=== PATIENT | female | born 1945 | race Caucasian/White ===

== ENCOUNTER 2016-12-20 13:47 | Inpatient (IN) | payer MEDICARE, OTHER ==
[~2016-12-20] VITALS: Ht 162.6 cm; Wt 94.8 kg
[2016-12-20] MEDS ORDERED: LEVOTHYROXINE125 MCG PO (14:14)
[2016-12-20] MEDS ORDERED: HYDROCODONE-APA1 TAB PO (14:15)
[2016-12-20] MEDS ORDERED: OMEPRAZOLE DR 20 MG (14:15)
[2016-12-20] MEDS ORDERED: LEXAPRO20 MG PO (14:16)
[2016-12-20] MEDS ORDERED: OMEPRAZOLE20 M1 (14:17)
[2016-12-20] MEDS ORDERED: XOPENEX 1.1.25 MG/3 UPD (14:18)
[2016-12-20 15:17] LABS: BASOPHILS 0.1 % (0.0-2.0); EOSINOPHILS 0.2 % (0-7); HEMATOCRIT 28.3 % (36.0-48.0); HEMOGLOBIN 9.2 g/dL (12-16); IMMATURE GRANULOCYTES 0.2 % (0-5); LYMPHOCYTES 21.9 % (15-50); MCH 40.4 pg (26.0-34.0); MCHC 32.5 g/dL (31.0-37.0); MCV 124.1 fL (80.0-100.0); MEAN PLATELET VOLUME 10.7 fL (7.4-10.4); MONOCYTES 3.8 % (2-11); NEUTROPHILS 73.8 % (40-80); PLATELET COUNT 231 10x3/uL (130-400); RBC 2.28 10x6/uL (4.00-5.40); RDW 15.6 % (11.5-14.5); WBC 8.4 10x3/uL (4.8-10.8)
[2016-12-20 15:31] LABS: ALBUMIN 3.9 g/dL (3.4-5.0); ANION GAP 13.2 mmol/L (8-16); BILIRUBIN - TOTAL 1.81 mg/dL (0.2-1.3); CALCIUM 8.5 mg/dL (8.5-10.1); CREATININE - SERUM 1.3 mg/dL (0.6-1.3); POTASSIUM - SERUM 4.2 mmol/L (3.5-5.1); PROTEIN - SERUM 5.9 g/dL (6.4-8.2)
[2016-12-20 16:00] VITALS: BP 98/32
[2016-12-20 17:22] LABS: APPEARANCE CLOUDY (CLEAR); BILIRUBIN NEGATIVE (NEGATIVE); COLOR DK YELLOW (YELLOW); GLUCOSE 50 mg/dL (NEGATIVE); KETONE NEGATIVE (NEGATIVE); LEUKOCYTE ESTERASE 1+ (NEGATIVE); NITRITE NEGATIVE (NEGATIVE); PROTEIN 2+ mg/dL (NEGATIVE); SPECIFIC GRAVITY 1.025 (1.005-1.020); UROBILINOGEN NORMAL (NORMAL)
[2016-12-20 17:23] LABS: BACTERIA MANY /hpf (NONE SEEN); EPITHELIAL CELLS 0-5 /hpf (0-5); HYALINE CAST 0-5 /lpf (NONE SEEN); MUCUS <1+ /lpf (NONE SEEN); RED CELLS - URINE 0-5 /hpf (0-5); WHITE CELLS - URINE 0-5 /hpf (0-5)
[2016-12-20 17:24] LABS: CALCIUM OXALATE CRYSTALS 0-5 /hpf (NONE SEEN)
[2016-12-20 18:08] VITALS: BP 98/32; BMI 35.9
[2016-12-20 19:00] VITALS: BP 139/51
[2016-12-21] VITALS (16 sets, daily range): BP systolic 98–140; BP diastolic 39–69; Ht 162.6 cm; Wt 94.8 kg
[2016-12-21 05:25] LABS: BASOPHILS 0 % (0.0-2.0); EOSINOPHILS 0 % (0-7); HEMATOCRIT 23.9 % (36.0-48.0); HEMOGLOBIN 8.2 g/dL (12-16); LYMPHOCYTES 6.4 % (15-50); MCH 41.2 pg (26.0-34.0); MCHC 34.3 g/dL (31.0-37.0); MEAN PLATELET VOLUME 11.3 fL (7.4-10.4); MONOCYTES 0.7 % (2-11); NEUTROPHILS 92.9 % (40-80); PLATELET COUNT 240 10x3/uL (130-400); RDW 15.2 % (11.5-14.5); WBC 4.2 10x3/uL (4.8-10.8)
[2016-12-21 05:26] LABS: MCV 120.1 fL (80.0-100.0)
[2016-12-21 05:30] LABS: RBC 1.99 10x6/uL (4.00-5.40)
[2016-12-21 05:54] LABS: ALBUMIN 3.3 g/dL (3.4-5.0); ANION GAP 12.2 mmol/L (8-16); BILIRUBIN - TOTAL 1.11 mg/dL (0.2-1.3); CALCIUM 8.2 mg/dL (8.5-10.1); CARBON DIOXIDE 26.1 mmol/L (21.0-32.0); CREATININE - SERUM 1.2 mg/dL (0.6-1.3); POTASSIUM - SERUM 4.3 mmol/L (3.5-5.1); PRE-ALBUMIN 16.8 mg/dL (18.0-35.7); PROTEIN - SERUM 5.7 g/dL (6.4-8.2)
[2016-12-21 07:26] LABS: FOLATE (FOLIC ACID) - SERUM 2.9 ng/mL (>3.0)
--- NOTE | 2016-12-21 07:45 | NUR ---
ALERT THIS MORNING, HAS SOME COMPLAINTS ABOUT BEING RESTLESS FROM STEROIDS AND BREATHING TREATMENTS, HOPING A SHOWER LATER WILL HELP CALM HER, BED LOWEST POSITION, CALL LIGHT IN REACH, WILL CONTINUE TO MONITOR
--- NOTE | 2016-12-21 11:25 | NUR ---
Patient Name: BRYSON NOONAN Admission Status: Elective Accout number: [id number] Admission Date: 12-20-2016 : 1945 Admission Diagnosis:NAUSEA WITH VOMITING, UNSPECIFIED Attending: FABIAN Current LOS: 1 Anticipated DC Date: 12-25-2016 Planned Disposition: Home Primary Insurance: MEDICARE A & B Discharge Planning Comments: CM MET WITH PATIENT AND DAUGHTER IN LAW (RUTH ANN) REGARDING D/C NEEDS AND PLANS. PATIENT STATED SHE LIVES WITH HER SPOUSE (ROXANA). PATIENTS DAUGHTER IN LAW WILL DRIVE HER HOME AT DISCHARGE. PATIENT IS INDEPENDENT WITH HER CARE AND HAS A WALKER, CANE, BS COMMODE, SHOWER CHAIR, AND GLUCOMETER (CKS 1X EVERY 3 DAYS) IF NEEDED. PATIENT USES THE CANE MORE THAN THE WALKER PER DAUGHTER IN LAW. PATIENTS PCP IS DR. LUTZ AND PHARMACY IS [facility]. PATIENT STATED SHE HELPED START [facility] AND SHE WILL GET IN TOUCH WITH THEM HERSELF IF SERVICES ARE NEEDED. CM WILL CONTINUE TO FOLLOW PATIENT WITH D/C NEEDS AND PLANS. PCP [facility]- [phone] ROXANA (SPOUSE) [phone] RUTH ANN (DAUGHTER IN LAW) [phone] Regulatory Specialist: Nae Farris Is the patient Alert and Oriented? Yes 0 * How many steps to enter\exit or inside your home? 5 W/O RAIL 0 * PCP DR. LUTZ 0 * Pharmacy [facility] 0 * Preadmission Environment Home with Family 0 * ADLs Independent 0 * Equipment Bedside Commode Cane Glucometer Shower Chair Walker 0 * List name and contact numbers for known caregivers / representatives who currently or will assist patient after discharge: ROXANA (SPOUSE) [phone] RUTH ANN (DAUGHTER IN LAW) [phone] 0 * Community resources currently utilized None 0 * Additional services required to return to the preadmission environment? Yes 0 * Can the patient safely return to the preadmission environment? Yes 0 * Has this patient been hospitalized within the prior 30 days at any hospital? No 0 Grand Total: 0
--- NOTE | 2016-12-21 14:35 | NUR ---
RESTING QUIETLY IN BED. DENIES NEEDS. NO C/O NAUSEA AT THIS TIME.
[2016-12-21 17:19] LABS: % SATURATION 54 % (15-55); IRON 99 ug/dl (35-150); TOTAL IRON BIND CAPACITY 183 ug/dl (260-445); UNSAT IRON BIND CAPACITY 84 ug/dl (150-375)
--- NOTE | 2016-12-21 18:26 | NUR ---
BALLOON DILATION TO 54 FRISIAN 1X 1 MINUTE.
--- NOTE | 2016-12-21 19:40 | NUR ---
PT SITTING UP IN BED TALKING WITH FAMILY, ASSESSMENT COMPLETED, NO ACUTE DISTRESS NOTED, DENIES PAIN, NAUSEA OR NEEDS AT THIS TIME, FALL PRECATIONS IN PLACE, CL IN REACH, WILL MONITOR
--- NOTE | 2016-12-21 21:14 | NUR ---
MEDS GIVEN PER MAR, ADRIANNE WELL, DENIES OTHER NEEDS AT THIS TIME, CL IN REACH
[2016-12-22] VITALS: BP 153/47
--- NOTE | 2016-12-22 01:11 | NUR ---
RESTING WITH EYES CLOSED, RESP WITH EASE, NO DISTRESS NOTED, CL IN REACH
--- NOTE | 2016-12-22 03:21 | NUR ---
RESTING WITH EYES CLOSED, RESP WITH EASE, NO DISTRESS NOTED, SR'S UP, CL IN REACH
[2016-12-22 04:00] VITALS: BP 129/49
[2016-12-22 06:16] LABS: BASOPHILS 0 % (0.0-2.0); EOSINOPHILS 0 % (0-7); HEMATOCRIT 25.3 % (36.0-48.0); HEMOGLOBIN 8.3 g/dL (12-16); IMMATURE GRANULOCYTES 0.3 % (0-5); LYMPHOCYTES 4.4 % (15-50); MCH 41.1 pg (26.0-34.0); MCHC 32.8 g/dL (31.0-37.0); MEAN PLATELET VOLUME 11.2 fL (7.4-10.4); MONOCYTES 1.2 % (2-11); NEUTROPHILS 94.1 % (40-80); PLATELET COUNT 271 10x3/uL (130-400); RBC 2.02 10x6/uL (4.00-5.40); RDW 16.2 % (11.5-14.5)
[2016-12-22 06:23] LABS: MCV 125.2 fL (80.0-100.0)
[2016-12-22 06:38] LABS: ALBUMIN 3.6 g/dL (3.4-5.0); ANION GAP 13.4 mmol/L (8-16); BILIRUBIN - TOTAL 1.61 mg/dL (0.2-1.3); CALCIUM 8.8 mg/dL (8.5-10.1); CARBON DIOXIDE 26.3 mmol/L (21.0-32.0); CREATININE - SERUM 1.4 mg/dL (0.6-1.3); POTASSIUM - SERUM 4.7 mmol/L (3.5-5.1)
[2016-12-22 12:32] VITALS: BP 140/87
[2016-12-22 17:31] VITALS: BP 150/58
[2016-12-22 19:01] VITALS: BP 135/54
--- NOTE | 2016-12-22 19:30 | NUR ---
REC'D PATIENT SITTING ON THE SIDE OF THE BED. ALERT AND ORIENTED X4. NO DISTRESS NOTED. DENIES PAIN AT THIS TIME. DENIED FURTHER NEEDS AT THIS TIME. INTRUCTED TO CALL IF NEEDED ANYTHING. VERBALIZED UNDERSTANDING. BED LOW, LOCKED, CALL LIGHT IN REACH.
--- NOTE | 2016-12-22 21:15 | NUR ---
ADMINISTERED MEDS PRESCRIBED. STATED PAIN WAS 8/10 IN HER BACK. DOES NOT HAVE ANYTHING ON HER MAR BUT TYLENOL WITH ADMINISTER THAT PER HER REQUEST. ALSO INTRUCTED PATIENT NOT TO STRETCH HER IV TUBING OUT SO THAT HER IV DOES NOT COME OUT. VERBLAIZED UNDERSTANDING. BED LOW, LOCKED, CALL LIGHT IN REACH.
[2016-12-23] VITALS: BP 148/61
--- NOTE | 2016-12-23 00:45 | NUR ---
PATIENT IS RESTING COMFORTABLY IN BED. NO DISTRESS NOTED. DENIED PAIN AT THIS TIME. DENIED FURTHER NEEDS AT THIS TIME. INTRUCTED TO CALL IF NEEDED ANYTHING. BED LOW, LOCKED, CALL LIGHT IN REACH.
--- NOTE | 2016-12-23 01:31 | NUR ---
PATIENT RESTING WITH EYES CLOSED. NO VISIBLE SIGNS OF DISTRESS. BED IN LOWEST POSITION AND CALL LIGHT WITHIN REACH.
[2016-12-23 04:00] VITALS: BP 144/66
--- NOTE | 2016-12-23 04:06 | NUR ---
PATIENT IS HAVING BLOOD DRAWN. NO DITRESS NOTED. DENIES PAIN AT THIS TIME. DENIED NEEDS AT THIS TIME. INTRUCTED TO CALL IF NEEDED ASSISTANCE. VERBLAIZED UNDERSTANDING. BED LOW, LOCKED, CALL LIGHT IN REACH.
[2016-12-23 04:51] LABS: BASOPHILS 0 % (0.0-2.0); EOSINOPHILS 0 % (0-7); HEMATOCRIT 22.5 % (36.0-48.0); IMMATURE GRANULOCYTES 0.4 % (0-5); LYMPHOCYTES 4.8 % (15-50); MCH 41.1 pg (26.0-34.0); MCHC 32.9 g/dL (31.0-37.0); MEAN PLATELET VOLUME 11.3 fL (7.4-10.4); NEUTROPHILS 93.8 % (40-80); RDW 16.1 % (11.5-14.5)
[2016-12-23 04:53] LABS: WBC 7.7 10x3/uL (4.8-10.8)
[2016-12-23 04:54] LABS: HEMOGLOBIN 7.4 g/dL (12-16); PLATELET COUNT 205 10x3/uL (130-400)
[2016-12-23 05:10] LABS: ALBUMIN 3.4 g/dL (3.4-5.0); ANION GAP 10.9 mmol/L (8-16); BILIRUBIN - DIRECT 0.21 mg/dL (0.00-0.30); BILIRUBIN - TOTAL 1.2 mg/dL (0.2-1.3); CALCIUM 8.4 mg/dL (8.5-10.1); CARBON DIOXIDE 26.4 mmol/L (21.0-32.0); POTASSIUM - SERUM 4.3 mmol/L (3.5-5.1); PROTEIN - SERUM 5.4 g/dL (6.4-8.2)
--- NOTE | 2016-12-23 07:20 | NUR ---
PT REC'D FROM [facility]. UP AMBULATING AROUND ROOM W/O DIFFICULTY. AAOX4. NO COMPLAINTS OF PAIN CURRENTLY. BOWEL SOUNDS ACTIVE X4 QUADRANTS. NO C/O OF N/V. ZOFRAN DRIP INFUSING TO PIV TO R WRIST. NO REDDNESS OR SWELLING NOTED. BED LOW, CALL LIGHT IN REACH, DENEIS NEEDS. CPOC.
[2016-12-23 08:28] VITALS: BP 127/47
[2016-12-23 12:02] VITALS: BP 140/54
--- NOTE | 2016-12-23 14:45 | NUR ---
20 GUAGE IV SITED TO L FOREARM. X1 ATTEMPT. ABLE TO GET RETURN AND FLUSH W/O DIFFICULTY. PRE BLOOD VS OBTAINED AND STABLE AT THIS TIME. 1ST UNIT OF PRBC'S STARTED. WILL MONITOR. FOR FIRST 15 MINUTES.
--- NOTE | 2016-12-23 16:24 | NUR ---
PT AOX4 RESP EVEN AND NONLABORED PT IV IN RIGHT WRIST PATENT AND INTACT. PT DENIES NEEDS AT THIS TIME BED AT LOWEST SETTING CALL LIGHT WITH IN REACH WILL CONTINUE TO MONITOR
--- NOTE | 2016-12-23 16:30 | NUR ---
CURRENT FSBS 123. NO INSULIN ADMINSITERED PER SS.
[2016-12-23 16:36] VITALS: BP 168/67
--- NOTE | 2016-12-23 18:08 | NUR ---
HARVEY STARTED AT THIS TIME. PT WAS ABLE TO GET ONE 8OZ CUP DOWN BEFORE STARTING TO HAVE BM. BSC CLOSE AND CALL LIGHT WITHIN REACH.
--- NOTE | 2016-12-23 20:00 | NUR ---
STARTED SECOND UNIT OF BLOOD ON PATIENT. NO VISIBLE SIGNS OF DISTRESS AND VITAL SIGNS WITHIN NORMAL LIMITS. BED IN LOWEST POSITION AND CALL LIGHT WITHIN REACH. ENCOURAGED PATIENT TO CALL IF SHE HAS NEEDS.
[2016-12-24] VITALS (14 sets, daily range): BP systolic 99–191; BP diastolic 55–95
--- NOTE | 2016-12-24 03:51 | NUR ---
PATIENT HAS BEEN UP MOST OF THE NIGHT GOING TO THE BATHROOM. WAS ON A BOWEL PREP FOR A COLONOSCOPY 12/24/16. I HUNG THE LAST UNIT OF BLOOD THAT SHE WAS TO RECIEVE AT 8PM WITH NAREN WEEKS. VITALS WERE STABLE. NO DISTRESS NOTED. INSTRUCTED TO CALL IF NEEDED ANYTHING. VERBALIZED UNDERSTANDING. BED LOW, LOCKED, CALL LIGHT IN REACH.
[2016-12-24 05:30] LABS: APTT 31.9 SECONDS (22.8-39.4); INR 1.54 (0.85-1.17); PROTIME 18.4 SECONDS (11.6-15.0)
[2016-12-24 05:42] LABS: BASOPHILS 0 % (0.0-2.0); EOSINOPHILS 0 % (0-7); HEMATOCRIT 26.6 % (36.0-48.0); IMMATURE GRANULOCYTES 0.6 % (0-5); LYMPHOCYTES 5.4 % (15-50); MCH 37.3 pg (26.0-34.0); MCHC 33.8 g/dL (31.0-37.0); MCV 110.4 fL (80.0-100.0); MONOCYTES 1.3 % (2-11); NEUTROPHILS 92.7 % (40-80); PLATELET COUNT 169 10x3/uL (130-400); RBC 2.41 10x6/uL (4.00-5.40); WBC 6.7 10x3/uL (4.8-10.8)
[2016-12-24 06:05] LABS: ANION GAP 12.6 mmol/L (8-16); CALCIUM 8.4 mg/dL (8.5-10.1); CARBON DIOXIDE 25.5 mmol/L (21.0-32.0); CREATININE - SERUM 1.1 mg/dL (0.6-1.3); POTASSIUM - SERUM 4.1 mmol/L (3.5-5.1)
--- NOTE | 2016-12-24 06:30 | NUR ---
PT IS RESTING COMFORTLY IN BED. NO DISTRESS NOTED. BMS HAVE BEEN A CLEAR YELLOW. PT IS CONCERNED ABT IT. ALERT AND ORIENTED X4. DENIED PAIN AT THIS TIME. DENIED FURTHER NEEDS AT THIS TIME. BED LOW, LOCKED, CALL LIGHT IN REACH.
--- NOTE | 2016-12-24 07:33 | NUR ---
AWAKE AND ALERT. ORIENTED X3. NO C/O AT THIS TIME. LUNGS ARE CLEAR BILATERALLY, NO COUGH NOTED. SKIN IS INTACT WITHOUT REDNESS. IV TO RIGHT WRIST PATENT WITHOUT REDNESS AT INSERTION SITE. SL TO LEFT WRIST PATENT WELL. DENIES NEEDS. VISITORS AT BEDSIDE.
--- NOTE | 2016-12-24 11:30 | NUR ---
FSBS 125. NO COVERAGE.
[2016-12-24 13:13] LABS: HAPTOGLOBIN 39 mg/dL (34-200); TRANSFERRIN 182 mg/dL (200-370)
--- NOTE | 2016-12-24 15:57 | NUR ---
OFF UNIT VIA BED TO GI LAB.
--- NOTE | 2016-12-24 17:29 | NUR ---
RETURNED FROM PROCEDURE. A/O X3. NO C/O AT THIS TIME. DRY HACKY COUGH NOTED. WILL MONITOR.
[2016-12-24 18:08] LABS: SPE - A/G RATIO 1.8 (0.7-1.7); SPE - ALBUMIN 3.5 g/dL (2.9-4.4); SPE - ALPHA-1 GLOBULIN 0.2 g/dL (0.0-0.4); SPE - ALPHA-2 GLOBULIN 0.5 g/dL (0.4-1.0); SPE - BETA GLOBULIN 0.7 g/dL (0.7-1.3); SPE - GAMMA GLOBULIN 0.5 g/dL (0.4-1.8); SPE - M-SPIKE Not Observed g/dL (Not Observed); SPE - TOTAL PROTEIN 5.5 g/dL (6.0-8.5)
--- NOTE | 2016-12-24 18:46 | NUR ---
SITTING UP ON SIDE OF BED WITH VISITORS IN ROOM. NO C/O PAIN OR DISCOMFORT. NO CHANGES NOTED.
--- NOTE | 2016-12-24 20:00 | NUR ---
SITTING UP IN CHAIR VISITING WITH FAMILY, ASSESSMENT COMPLETED, NO DISTRESS NOTED, DENIES NEEDS AT THIS TIME, CL IN REACH, WILL MONITOR
[2016-12-24 20:07] LABS: IMMUNOFIXATION Note: (()); IMMUNOGLOBULIN A 66 mg/dL (64-422); IMMUNOGLOBULIN G 580 mg/dL (700-1600); IMMUNOGLOBULIN M 93 mg/dL (26-217)
--- NOTE | 2016-12-24 20:50 | NUR ---
MEDS GIVEN PER MAR, ADRIANNE WELL, INSULIN HELD PER SLIDING SCALE FOR BS OF 95, WILL ADMINISTER B12 INJECTION WHEN AVAILABLE FROM PHARMACY, FAMILY IN ROOM, DENIES NEEDS AT THIS TIME, CL IN REACH
--- NOTE | 2016-12-24 22:01 | NUR ---
B12 AVAILABLE AT THIS TIME, ADMINISTERED IN L DELTOID ALONG WITH PRN NORCO FOR C/O PAIN 04/25, ADRIANNE WELL, CL IN REACH
--- NOTE | 2016-12-24 23:20 | NUR ---
RESTING WITH EYES CLOSED, RESP WITH EASE, NO DISTRESS NOTED, FALL PRECAUTIONS IN PLACE, CL IN REACH, WILL CONTINUE TO MONITOR
--- NOTE | 2016-12-25 01:17 | NUR ---
CONTINUES TO REST WITH EYES CLOSED, IV INFUSING WITH EASE, SR'S UP, CL IN REACH
--- NOTE | 2016-12-25 03:52 | NUR ---
RESP EVEN AND UNLABORED, NO DISTRESS NOTED, CL IN REACH
[2016-12-25 04:00] VITALS: BP 127/58
[2016-12-25 05:43] LABS: BASOPHILS 0 % (0.0-2.0); EOSINOPHILS 0 % (0-7); HEMATOCRIT 26.4 % (36.0-48.0); HEMOGLOBIN 8.5 g/dL (12-16); IMMATURE GRANULOCYTES 0.2 % (0-5); LYMPHOCYTES 5.4 % (15-50); MCH 35.6 pg (26.0-34.0); MCHC 32.2 g/dL (31.0-37.0); MCV 110.5 fL (80.0-100.0); MEAN PLATELET VOLUME 11.7 fL (7.4-10.4); NEUTROPHILS 93.4 % (40-80); PLATELET COUNT 158 10x3/uL (130-400); RBC 2.39 10x6/uL (4.00-5.40); WBC 8.3 10x3/uL (4.8-10.8)
--- NOTE | 2016-12-25 07:30 | NUR ---
AWAKE AND ALERT. ORIENTED X3. C/O BACK PAIN LEVEL 7 THIS AM. GIVEN ONE HYDROCODONE PO FOR SAME. WILL MONITOR. LUNGS HAVE FAINT CRACKLES THROUGHOUT, DRY COUGH NOTED. SKIN IS INTACT WITHOUT REDNESS. IV TO LEFT WRIST PATENT WITHOUT REDNESS AT INSERTION SITE. SL TO RIGHT WRIST PATENT. DENIES NEEDS.
[2016-12-25 08:10] VITALS: BP 150/81
[2016-12-25 11:41] VITALS: BP 151/49
[2016-12-25] MEDS ORDERED: VITAMIN B-1000 MCG/M IM (12:29)
--- NOTE | 2016-12-25 13:01 | NUR ---
CM REASSESSMENT NOTE : PATIENT IS DISCHARGING HOME TODAY-DAUGHTER IN LAW DRIVING HER. PATIENT REF HH OR ANY OTHER NEEDS FOR DISCHARGE. PATIENT STATED SHE BUILT [facility] AND WOULD CALL THEM IF NEEDED.
--- NOTE | 2016-12-25 14:55 | NUR ---
IV TO LEFT WRIST D/C WITH CATHETER INTACT. SL TO RIGHT WRIST D/C WITH CATHETER INTACT.
--- NOTE | 2016-12-25 15:37 | NUR ---
DISCHARGED TO HOME AMBULATORY WITH FAMILY. DISCHARGE INSTRUCTIONS GIVEN BOTH VERBALLY AND WRITTEN. ALL QUESSTIONS ANSWERED. PATIENT AND FAMILY VERBALIZED UNDERSTANDING OF SAME. NEEDED PRESCRIPTIONS EFAXED TO PHARMACY OF CHOICE.
== END 2016-12-25 15:39 | disposition home or self-care (01) | DRG 392 ==
LOC: D.MS 13:47
PROVIDERS: Internal Medicine Gastroenterology; Legal Medicine; ADMIT Family Medicine
PROC: 0D758ZZ Dilation of Esophagus, Via Natural or Artificial Opening Endoscopic (ICD-10-PCS; 2016-12-21)
PROC: 0DB58ZX Excision of Esophagus, Via Natural or Artificial Opening Endoscopic, Diagnostic (ICD-10-PCS; principal; 2016-12-21 17:00)
PROC: 0DJD8ZZ Inspection of Lower Intestinal Tract, Via Natural or Artificial Opening Endoscopic (ICD-10-PCS; 2016-12-24)
DX: K22.2 Esophageal obstruction (principal); C90.00 Multiple myeloma not having achieved remission; E44.0 Moderate protein-calorie malnutrition; K22.4 Dyskinesia of esophagus; D51.1 Vitamin B12 deficiency anemia due to selective vitamin B12 malabsorption with proteinuria; D53.1 Other megaloblastic anemias, not elsewhere classified; E86.0 Dehydration; R63.4 Abnormal weight loss; R19.7 Diarrhea, unspecified; R68.81 Early satiety; J45.909 Unspecified asthma, uncomplicated; J44.9 Chronic obstructive pulmonary disease, unspecified; E11.9 Type 2 diabetes mellitus without complications; I50.9 Heart failure, unspecified; Z68.35 Body mass index [BMI] 35.0-35.9, adult; D17.79 Benign lipomatous neoplasm of other sites; K64.4 Residual hemorrhoidal skin tags; K64.8 Other hemorrhoids

== ENCOUNTER 2017-07-10 11:40 | Day surgery (SDC) | payer MEDICARE, OTHER ==
[~2017-07-10 11:40] MED LIST: HYDROCODONE-APA1 TAB PO; LEVOTHYROXINE125 MCG PO; LEXAPRO20 MG PO; OMEPRAZOLE DR 20 MG; OMEPRAZOLE20 M1; VITAMIN B-1000 MCG/M IM; XOPENEX 1.1.25 MG/3 UPD
[2017-07-10 12:26] LABS: BASOPHILS 0.4 % (0-2); HEMOGLOBIN 13.7 g/dL (12-16); IMMATURE GRANULOCYTES 0.2 % (0-5); LYMPHOCYTES 26.7 % (15-50); MCH 29.4 pg (26.0-34.0); MCHC 31.9 g/dL (31.0-37.0); MCV 92.3 fL (80.0-100.0); MEAN PLATELET VOLUME 11.3 fL (7.4-10.4); MONOCYTES 6.6 % (2-11); NEUTROPHILS 64.1 % (40-80); RBC 4.66 10x6/uL (4.00-5.40); RDW 14.8 % (11.5-14.5); WBC 8.4 10x3/uL (4.8-10.8)
[2017-07-10 12:27] LABS: PLATELET COUNT 248 10x3/uL (130-400)
[2017-07-10 12:35] VITALS: BMI 36.1
[2017-07-10 12:51] LABS: ANION GAP 11.7 mmol/L (8-16); CALCIUM 9.5 mg/dL (8.5-10.1); CARBON DIOXIDE 31.7 mmol/L (21.0-32.0); CREATININE - SERUM 0.9 mg/dL (0.6-1.3); POTASSIUM - SERUM 4.4 mmol/L (3.5-5.1)
--- NOTE | 2017-07-14 12:24 | OP ---
PATIENT NAME: BRYSON NOONAN MEDICAL RECORD: [id number] :45 LOCATION:GOOD ADMISSION DATE: SURGEON: ROSIE CHAVEZ DO DATE OF OPERATION: 07/10/2017 PROCEDURE: EGD with balloon dilation. INDICATIONS FOR PROCEDURE: Dysphagia as well as epigastric abdominal pain and heartburn. SCOPE: Kinopto video gastroscope. MEDICATIONS: Propofol 150 mg IV per anesthesia. ESTIMATED BLOOD LOSS: Minimal to none. COMPLICATIONS: None. FINDINGS: Informed consent was given. The patient was made comfortable with the above medication. After reaching an adequate level of sedation by slow IV push, the patient was placed on her left side. The endoscope was then advanced under direct visualization through the mouth into the efferent limb of the jejunum down to approximately 40 plus or minus cm. The upper, middle, and lower thirds of the esophagus appeared normal. At the GE junction, there was some mild LA class A reflux-induced esophagitis. There was some slight stenosis of the GE junction without any specific stricturing. The scope easily traversed the site prior to dilation. The gastric pouch appeared normal without erosions or ulcerations or the appearance of inflammation. The blind pouch was inspected and appeared normal. The efferent limb of the jejunum was traversed approximately 40 cm and all of the mucosa that was visualized appeared normal. The endoscope was then brought back up to the gastric pouch and through the scope balloon was placed through the working channel and at the side of the esophageal stenosis. The balloon was used to dilate the GE junction up to 20 mm maximum diameter. The balloon was then let down and the site was inspected. The dilation was successful. The endoscope was then withdrawn from the patient. The patient tolerated the procedure well and there were no complications. IMPRESSION: 1. LA class A reflux-induced esophagitis. 2. 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 3. History of Jackeline-en-Y gastric bypass with a normal efferent limb to approximately 40 cm. PLAN AND RECOMMENDATIONS: 1. Discharge home when recovery parameters are met. 2. Continue GERD diet and reflux precautions. 3. Continue current medications. 4. Notify the GI clinic if symptoms worsen or failed to improve, status post dilation. 5. If symptoms failed to improve, consider an upper GI with small bowel follow through and/or an esophageal manometry study. TRANSINT:[id number] Voice Confirmation ID: [id number] DOCUMENT ID: [id number] OPERATIVE REPORT [id number] BRYSON NOONAN NATHAN A DO at 1224 CC: [id number] DICTATION DATE: 07/10/17 1336 TYPE SOLDERING MACHINE TENDER: 07/10/17 1446 [facility] 07/10/17 [place] [id number] [place] [id number]
== END 2017-07-10 15:15 | disposition home or self-care (01) ==
LOC: D.OPS 11:40
PROVIDERS: Anesthesiology
DX: K21.0 Gastro-esophageal reflux disease with esophagitis (principal); K22.2 Esophageal obstruction; Z98.84 Bariatric surgery status; Z01.812 Encounter for preprocedural laboratory examination

== ENCOUNTER 2017-08-16 09:00 | Outpatient (CLI) | payer MEDICARE, OTHER | END 2017-08-16 23:59 | disposition home or self-care (01) | LOC: D.MAMMO 09:00 | DX: Z12.31 Encounter for screening mammogram for malignant neoplasm of breast (principal) ==

== ENCOUNTER 2017-09-04 08:31 | Day surgery (SDC) | payer MEDICARE, OTHER ==
[~2017-09-04] VITALS: Ht 160 cm; Wt 92.7 kg
[2017-09-04 09:53] LABS: BASOPHILS 0.3 % (0-2); EOSINOPHILS 1.9 % (0-7); HEMATOCRIT 44.6 % (36.0-48.0); HEMOGLOBIN 14.4 g/dL (12-16); IMMATURE GRANULOCYTES 0.3 % (0-5); LYMPHOCYTES 28.3 % (15-50); MCH 29.4 pg (26.0-34.0); MCHC 32.3 g/dL (31.0-37.0); MEAN PLATELET VOLUME 11.4 fL (7.4-10.4); MONOCYTES 6.7 % (2-11); NEUTROPHILS 62.5 % (40-80); PLATELET COUNT 279 10x3/uL (130-400); RDW 13.3 % (11.5-14.5); WBC 7.8 10x3/uL (4.8-10.8)
[2017-09-04 10:11] LABS: ANION GAP 10.3 mmol/L (8-16); CALCIUM 9.6 mg/dL (8.5-10.1); CARBON DIOXIDE 31.3 mmol/L (21.0-32.0); POTASSIUM - SERUM 4.6 mmol/L (3.5-5.1)
[2017-09-04 11:59] VITALS: Ht 160 cm; Wt 92.7 kg
--- NOTE | 2017-09-04 17:53 | NUR ---
1445--IV DC'D. DILCIA SNEED 1500--DISCHARGE INSTRUCTIONS GIVEN, PT VERBALIZES UNDERSTANDING. PT OFF UNIT VIA WC. DILCIA SNEED
--- NOTE | 2017-09-12 10:48 | OP ---
PATIENT NAME: BRYSON NOONAN MEDICAL RECORD: [id number] :45 LOCATION:D.OPS ADMISSION DATE: SURGEON: ROSIE CHAVEZ DO DATE OF OPERATION: 09/04/2017 PROCEDURE: Colonoscopy with polypectomy. INDICATION FOR PROCEDURE: History of colon polyps. SCOPE: Olympus video pediatric colonoscope. MEDICATIONS: Propofol 300 mg IV per anesthesia. WITHDRAWAL TIME: 13 minutes. ESTIMATED BLOOD LOSS: Minimal. COMPLICATIONS: None. FINDINGS: Informed consent was given. The patient was made comfortable with the above medication. After reaching an adequate level of sedation by slow IV push, the patient was placed on her left side. A digital rectal examination was performed and was normal. The endoscope was then advanced under direct visualization through the rectum to the cecum with visualization of the appendiceal orifice and ileocecal valve. The endoscope was slowly withdrawn and the mucosa was carefully examined. The prep quality was good. There was evidence of mild diverticulosis of the sigmoid colon without evidence of diverticulitis. In the ascending colon, there was a single benign appearing sessile polyp which measured approximately 4-5 mm in diameter. It was removed using a hot snare in 1 piece and completely retrieved. Retroflexion was performed in the rectum with visualization of grade II to grade III nonbleeding hemorrhoids. These hemorrhoids were visualized on the digital rectal examination as well. The endoscope was withdrawn from the patient completely. The patient tolerated the procedure well and there were no complications. IMPRESSION: 1. Internal and external hemorrhoids, which were not bleeding. 2. Mild diverticulosis of the sigmoid colon. 3. Polyp located in the ascending colon, removed with a hot snare. PLAN AND RECOMMENDATIONS: 1. Discharge home when recovery parameters are met. 2. Follow up biopsy specimen results. 3. High fiber diet. 4. Continue current medications. 5. Recall colonoscopy in 5 years. 6. Follow up in GI clinic as needed. TRANSINT:[id number] Voice Confirmation ID: [id number] DOCUMENT ID: [id number] OPERATIVE REPORT [id number] BRYSON NOONAN ROSIE CHAVEZ DO at 1048 CC: [id number] DICTATION DATE: 09/04/17 1328 TAB CARD PRESS OPERATOR: 09/04/17 1413 [facility] 09/04/17 [place] [id number] [place] [address]
== END 2017-09-04 15:00 | disposition home or self-care (01) ==
LOC: D.OPS 08:31
PROVIDERS: Anesthesiology
DX: D12.2 Benign neoplasm of ascending colon (principal); J45.909 Unspecified asthma, uncomplicated; J44.9 Chronic obstructive pulmonary disease, unspecified; R10.13 Epigastric pain; R11.0 Nausea

== ENCOUNTER 2017-12-30 10:13 | Day surgery (SDC) | payer MEDICARE, OTHER ==
[~2017-12-30] VITALS: Ht 160 cm; Wt 99.1 kg
--- NOTE | ~2017-12-30 | OP ---
PATIENT NAME: BRYSON NOONAN MEDICAL RECORD: [id number] :45 LOCATION:GOOD ADMISSION DATE: SURGEON: ROSIE CHAVEZ DO DATE OF OPERATION: 12/30/2017 PROCEDURE: EGD. INDICATIONS FOR PROCEDURE: Dysphagia and epigastric and right upper quadrant pain. SCOPE: Olympus video gastroscope. MEDICATIONS: Propofol 100 mg IV per anesthesia. ESTIMATED BLOOD LOSS: None. COMPLICATIONS: None. FINDINGS: Informed consent was given. The patient was made comfortable with the above medication. After reaching an adequate level of sedation by slow IV push, the patient was placed on her left side. The endoscope was then advanced under direct visualization through the mouth to the Jackeline limb of the jejunum to approximately 60 cm from the mouth. The upper, middle, and lower thirds of the esophagus appeared normal. At the GE junction, there was mild evidence of LA class A reflux-induced esophagitis. There was no stenosis, rings, webs, or strictures within the esophagus or GE junction. The endoscope was advanced beyond the GE junction into the gastric pouch, which appeared normal in size. There were no erosions or ulcers present within the pouch or the anastomotic sites. The endoscope was advanced beyond the anastomosis to the point where a blind limb was present. There was also an exit to the Jackeline limb. The blind pouch appeared normal. There were no ulcers or erosions, or other abnormalities in this site. The endoscope was advanced down the Jackeline limb to approximately 60 cm from the incisors. There were no abnormalities visualized within this area of small bowel. The endoscope was then withdrawn from the patient. The patient tolerated the procedure well and there were no complications. IMPRESSION: 1. LA class A reflux-induced esophagitis. 2. Prior Jackeline-en-Y gastric bypass surgery. The anastomotic site appears normal and healthy. 3. Dysphagia and pain after eating may be related to distention of the gastric pouch and/or the blind limb. PLAN AND RECOMMENDATIONS: 1. Discharge home when recovery parameters are met. 2. Continue GERD diet and reflux precautions. 3. Recommend smaller more frequent meals. 4. We will obtain an upper GI with small bowel follow through to look for other causes of symptoms. 5. Consider esophageal manometry study if dysphagia persists. TRANSINT:[id number] Voice Confirmation ID: [id number] DOCUMENT ID: [id number] OPERATIVE REPORT [id number] SHAISTABRYSON CHAMORRO NATHAN A DO at 1524 CC: [id number] DICTATION DATE: 12/30/17 1217 CORN HUSK BALER: 12/30/17 1246 [facility] 12/30/17 [place] [id number] [place] [address]
[2017-12-30] MEDS ORDERED: NEURONTIN 300300 MG PO (11:04)
[2017-12-30 11:11] VITALS: BP 157/113; Ht 160 cm; Wt 99.1 kg
[2017-12-30 12:04] LABS: BASOPHILS 0.3 % (0-2); EOSINOPHILS 2.9 % (0-7); HEMATOCRIT 41.4 % (36.0-48.0); HEMOGLOBIN 13.1 g/dL (12-16); IMMATURE GRANULOCYTES 0.3 % (0-5); LYMPHOCYTES 22.3 % (15-50); MCH 28.8 pg (26.0-34.0); MCHC 31.6 g/dL (31.0-37.0); MEAN PLATELET VOLUME 12.5 fL (7.4-10.4); MONOCYTES 7.2 % (2-11); PLATELET COUNT 299 10x3/uL (130-400); RBC 4.55 10x6/uL (4.00-5.40); RDW 13.4 % (11.5-14.5); WBC 7.7 10x3/uL (4.8-10.8)
[2017-12-30 12:15] LABS: CALC OSMOLALITY 278 mosm/kg (275-300); CALCIUM 8.8 mg/dL (8.5-10.1); CARBON DIOXIDE 26.8 mmol/L (21.0-32.0); CHLORIDE - SERUM 104 mmol/L (98-107); CREATININE - SERUM 0.7 mg/dL (0.6-1.3); GLUCOSE 94 mg/dL (74-106); POTASSIUM - SERUM 5.4 mmol/L (3.5-5.1); SODIUM 140 mmol/L (136-145); UREA NITROGEN 13 mg/dL (7-18); eGFR NON AFRICAN AMERICAN 87 mL/min (90-120)
== END 2017-12-30 13:40 | disposition home or self-care (01) ==
LOC: D.OPS 10:13
PROVIDERS: Anesthesiology
DX: R13.10 Dysphagia, unspecified (principal); R10.13 Epigastric pain; K21.0 Gastro-esophageal reflux disease with esophagitis; Z98.84 Bariatric surgery status; Z01.812 Encounter for preprocedural laboratory examination; E11.9 Type 2 diabetes mellitus without complications; E03.9 Hypothyroidism, unspecified; G47.30 Sleep apnea, unspecified; J44.9 Chronic obstructive pulmonary disease, unspecified; J45.909 Unspecified asthma, uncomplicated

== ENCOUNTER → 2018-08-26 17:21 | Outpatient (CLI) | payer MEDICARE, OTHER ==
[2017-12-30 11:11] VITALS: BMI 38.7
[~2018-08-26 17:21] MED LIST changes: +NEURONTIN 300300 MG PO
== END | disposition home or self-care (01) ==
LOC: D.MAMMO 11:00
DX: Z12.31 Encounter for screening mammogram for malignant neoplasm of breast (principal)

== ENCOUNTER → 2018-09-25 16:59 | Outpatient (CLI) | payer MEDICARE, OTHER ==
[2017-12-30 11:11] VITALS: BMI 38.7
== END | disposition home or self-care (01) ==
LOC: D.MAMMO 15:00
DX: R92.8 Other abnormal and inconclusive findings on diagnostic imaging of breast (principal)

== ENCOUNTER → 2018-11-25 12:43 | Outpatient (CLI) | payer MEDICARE, OTHER ==
[2017-12-30 11:11] VITALS: BMI 38.7
== END | disposition home or self-care (01) ==
LOC: D.RAD 12:43
PROVIDERS: ATTEND Family Medicine
DX: R13.12 Dysphagia, oropharyngeal phase (principal)

== ENCOUNTER 2019-07-19 16:16 | Inpatient (IN) | payer MEDICARE, OTHER ==
[~2019-07-19] VITALS: Ht 162.6 cm; Wt 99.3 kg
--- NOTE | ~2019-07-19 | HEMODYNAMI ---
PATIENT:BRYSON NOONAN MEDICAL RECORD: [id number] : 45 LOCATION[facility] [id number] ADMISSION DATE: 07/19/19 Generatedon:07/20/201917:49 Patient name: BRYSON NOONAN Patient #: [id number] SSN: [id number] : 1945 Date of study: 07/20/2019 Page: Of Hemodynamic Procedure Report Patient Data Patient Demographics Procedure consent was obtained First Name: BRYSON Gender: Female Last Name: SHAISTA : 1945 Middle Initial: M Age: 74 year(s) Patient #: [id number] Race: SSN: [id number] Additional ID: [id number] Contact details Address: [address] [place] [address] State: [place] City: [place] Zip code: [address] Past Medical History Allergies Allergen Reaction Date Comments Reported Other allergy 07/20/2019 SHELLFISH, ALUBUTEROL, IODINE, BETADINE, LEVOFLOXACIN, PCN Admission Admission Data Admission Date: 07/19/2019 Admission Time: 19:17 Room #: D.2124 Height (in.): 64 BSA: 2.04 (m2) Height (cm.): 162.56 BMI: 37.84 (kg/m2) Weight (lbs.): 220.46 Weight (kg.): 100 Lab Results Lab Result Date: 07/20/2019 Lab Result Time: 0:00 Biochemistry Name Units Result Min Max BUN mg/dl 20 --(----)*- 7 18 Creatinine mg/dl 0.7 --(*---)-- 0.6 1.3 eGFR ml/min 87 -*(----)-- 90 120 NONAFRICAN CBC Name Units Result Min Max Hematocrit % 42.4 --(*---)-- 42 54 Hemoglobin g/dl 12.6 -*(----)-- 13.5 17.5 Procedure Procedure Types Cath Procedure Diagnostic Procedure LHC LHC w/Coronaries FFR/IVUS FFR Initial Sedation Charges Moderate Sedation up to 15 minutes PCI Procedure Coronary Stent Coronary Stent Initial x2 Procedure Description Procedure Date Procedure Date: 07/20/2019 Procedure Start Time: 17:23 Procedure End Time: 17:44 Procedure Staff Name Function Rocky Trotter MD Performing Physician Norah Coronel RT Monitor Mindy Payne RT Monitor July Murphy RT Scrub Chantell Branch RN Nurse Procedure Data Cath Procedure Fluoroscopy Diagnostic fluoroscopy Total fluoroscopy Time: 5.1 time: 5.1 min min Diagnostic fluoroscopy Total fluoroscopy dose: 528 dose: 528 mGy mGy Contrast Material Contrast Material Type Amount (ml) Isovue 300 127 Entry Location Entry Primary Successful Side Size Upsize Upsize Entry Closure Succes sful Closure Location (Fr) 1 (Fr) 2 (Fr) Remarks Device Remarks Femoral Right 5 Fr 6 Fr Exoseal artery Short Estimated blood loss: 10 ml Diagnostic catheters Device Type Used For End Catheter Placement MULTIPACK Pigtail 5 Fr LV Angiography catheter MULTIPACK JL 4.0 5Fr Left Coronary catheter Angiography MULTIPACK 3DRC 5Fr Right Coronary catheter Angiography Procedure Complications No complications Procedure Medications Medication Administration Route Dosage Oxygen etCO2 Nasal cannula 2 l/min Lidocaine 2% added to field 20 Heparin Flush Bag added to field 2 bags (1000units/500ml NS) 0.9% NaCl I.V. 100 ml/hr Versed I.V. 1 mg Fentanyl I.V. 50 mcg Versed I.V. 1 mg Fentanyl I.V. 50 mcg Heparin Bolus I.V. 4000 units Hemodynamics Rest BSA: 2.04 (m2) HGB: 12.6 (g/dl) O2 Consumption: Estimated: 187.32 (ml/min) O2 Co nsumption indexed: Estimated:91.82 (ml/min/m) Heart Rate: 72 (bpm) Snapshots Pre Cath Intra NCS Post Cath Vital Signs Time Heart Resp SPO2 etCO2 NIBP (mmHg) Rhythm Pain Sedation Rate (ipm) (%) (mmHg) Status Level (bpm) 17:02:24 76 13 94 0 179/88(129) NSR 0 (11) 10(A) , No pain 17:07:09 65 15 92 29.9 184/78(129) NSR 0 (11) 10(A) , No pain 17:11:51 66 12 93 35.9 171/70(129) NSR 0 (11) 10(A) , No pain 17:16:32 64 18 92 35.9 161/69(116) NSR 0 (11) 10(A) , No pain 17:21:08 65 17 92 18.7 164/67(111) NSR 0 (11) 10(A) , No pain 17:25:43 68 18 93 37.4 158/65(124) NSR 0 (11) 9(A) , No pain 17:30:21 74 29 93 37.4 166/69(115) NSR 0 (11) 9(A) , No pain 17:35:02 78 14 92 40.4 164/70(104) NSR 0 (11) 9(A) , No pain 17:39:41 82 15 94 12.7 150/70(116) NSR 0 (11) 10(A) , No pain 17:44:13 82 10 92 38.9 166/76(111) NSR 0 (11) 10(A) , No pain Medications Time Medication Route Dose Verified Delivered Reason Notes Effectiveness by by 17:07:13 Oxygen etCO2 2 Rocky Buffie used for Nasal l/min Rose Marie Branch RN procedure cannula 17:07:40 Lidocaine 2% added 20ml Rocky Buffie for local to vial Rose Marie Branch RN anesthetic field 17:07:46 Heparin Flush added 2 Rocky Buffie used for Bag to bags Rose Marie Branch RN procedure (1000units/500ml field NS) 17:07:57 0.9% NaCl I.V. 100 Rocky Buffie Per physician ml/hr Rose Marie Branch RN 17:20:42 Versed I.V. 1 mg Rocky Buffie for sedation Rose Marie Branch RN 17:20:48 Fentanyl I.V. 50 Rocky Buffie for sedation mcg Rose Marie Branch RN 17:25:04 Versed I.V. 1 mg Rocky Buffie for sedation Rose Marie Branch RN 17:25:07 Fentanyl I.V. 50 Rocky Buffie for sedation mcg Rose Marie Branch RN 17:33:08 Heparin Bolus I.V. 4000 Rocky Buffie for verif ied units Rose Marie Branch RN anticoagulation with dr trotter Procedure Log Time Note 16:35:19 Informed consent obtained and on chart 16:35:47 Procedure Status Urgent Heart Cath (IP). 16:35:49 Time tracking: Regular hours (M-F 7:00 - 5:00) 16:35:52 Plan of Care:Hemodynamics will remain stable., Cardiac rhythm will remain stable., Comfort level will be maintained., Respiratory function will remain adequate., Patient/ family verbilizes understanding of procedure., Procedure tolerated without complication., Recovers from procedure without complications.. 16:35:54 Chantell Branch RN sent for patient. Start room use. 16:35:59 H&P Date Dictated: 07/20/2019 Within 30 days and on chart.. 16:37:33 Lab Result : BUN 20 mg/dl 16:37:33 Lab Result : Creatinine 0.7 mg/dl 16:37:33 Lab Result : Hemoglobin 12.6 g/dl 16:37:33 Lab Result : eGFR NONAFRICAN 87 ml/min 16:37:33 Lab Result : Hematocrit 42.4 % 16:43:44 Risk of Mortality: .1 16:43:47 Risk of blood transfusion: .7 16:43:50 Risk of LAYA: 1.6 16:45:21 Patient Weight : 220.46 lbs 16:45:25 Patient Height : 64 inches 16:46:49 Patient allergic to Other allergySHELLFISH, ALUBUTEROL, IODINE, BETADINE, LEVOFLOXACIN, PCN 16:52:56 Patient received from Med II to CCL 1 Alert and oriented. Tansferred to table in Supine position. 16:52:57 Warm blankets applied, and gabe hugger turned on for patient comfort. 16:52:57 Correct patient and procedure confirmed by team. 16:52:59 ECG and BP/O2 sat monitors applied to patient. 17:00:09 Full Disclosure recording started 17:00:14 Pre-procedure instructions explained to patient. 17:00:14 Pre-op teaching completed and patient verbalized understanding. 17:00:16 Family in patients room. 17:00:18 Patient NPO since Midnight. 17:00:22 Patient diabetic? No. 17:00:25 Patient not . Patient is over age 55. 17:00:28 Previous problem with sedation/anesthesia? No ? 17:00:30 Snore? Yes 17:00:34 Sleep apnea? No 17:00:35 Deviated septum? No 17:00:37 Opens mouth fully? Yes 17:00:38 Sticks out tongue? Yes 17:00:43 Airway obstruction? Yes COPD 17:00:47 Dentures? No ? 17:00:55 Vital chart was started 17:01:01 Patient pain scale 0/10 ?. 17:01:07 IV patent on arrival in right antecubital with 0.9% NaCl at KVO. 17:01:09 Lab results completed and on chart. 17:02:10 Stress Test: no; N/A ? 17:02:15 Right groin area was prepped with chlora-prep and draped in sterile fashion 17:02:15 Alarms reviewed by R. N. 17:02:16 Sharps counted by scrub and verified by R.N. 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 17:02:31 Rhythm: sinus rhythm 17:02:33 Baseline sample Acquired. 17:03:26 Use device set Femoral Dx 17:03:27 ACIST Syringe (56408) opened to sterile field. 17:03:28 Bag Decanter (2002S) opened to sterile field. 17:03:29 ACIST Hand Control (20258) opened to sterile field. 17:03:29 ACIST Manifold (32589) opened to sterile field. 17:03:30 Tegaderm 4 x 4 (1626W) opened to sterile field. 17:03:31 Medline Cath Pack ([id number]) opened to sterile field. 17:03:32 DIAGNOSTIC Multipack 5Fr catheter set (HK9848) opened to sterile field. 17:03:33 SHEATH 5FR Keller (HMF951) opened to sterile field. 17:03:33 EMERALD Guide Wire (297-167) opened to sterile field. 17:04:47 Is the patient allergic to Iodine/contrast media? Yes. 17:04:48 Was the patient premedicated? Yes 17:05:06 Is patient on blood thinner?Yes, 600 MG PLAVIX 17:05:55 Pre procedure: right dorsailis pedis pulse 2+ Normal; easily identifiable; not easily obliterated 17:07:13 Oxygen 2 l/min etCO2 Nasal cannula was administered by Chantell Branch RN; used for procedure; Verbal order read back and verified. 17:07:40 Lidocaine 2% 20ml vial added to field was administered by Chantell Branch RN; for local anesthetic; Verbal order read back and verified. 17:07:46 Heparin Flush Bag (1000units/500ml NS) 2 bags added to field was administered by Chantell Branch RN; used for procedure; Verbal order read back and verified. 17:07:57 0.9% NaCl 100 ml/hr I.V. was administered by Chantell Branch RN; Per physician; Verbal order read back and verified. 17:13:57 Zero performed for pressure channel P1 17:18:08 --------ALL STOP TIME OUT------ 17:18:10 Final Timeout: patient, procedure, and site verified with staff and physician. All members of the team are in agreement. 17:18:14 Right groin site verified by team. 17:18:21 Fire Safety Assessment: A--An alcohol-based skin anteseptic being used preoperatively., C--Open oxygen or nitrous oxide is being used., D--An ESU, laser, or fiber-optic light is being used. 17:18:27 Physical assessment completed. ASA score P 2 - A patient with mild systemic disease as per Rocky Trotter MD. 17:18:32 2) 60-89 Mildly reduced kidney function, and other findings (as for stage 1) point to kidney disease. 17:18:38 Maximum allowable contrast dose (3.7 X eGFR X 0.75)241 ml. 17:18:45 Sedation plan: IV Moderate Sedation Medication:Versed, Fentanyl 17:20:42 Versed 1 mg I.V. was administered by Chantell Branch RN; for sedation; Verbal order read back and verified. 17:20:48 Fentanyl 50 mcg I.V. was administered by Chantell Branch RN; for sedation; Verbal order read back and verified. 17:23:20 Procedure started. 17:23:51 Local anesthetic to right femoral artery with Lidocaine 2% by Rocky Trotter MD.INITIAL ACCESS ONLY 17:24:50 A 5 Fr sheath was inserted into the Right Femoral artery 17:25:04 Versed 1 mg I.V. was administered by Chantell Branch RN; for sedation; Verbal order read back and verified. 17:25:07 Fentanyl 50 mcg I.V. was administered by Chantell Branch RN; for sedation; Verbal order read back and verified. 17:25:07 A MULTIPACK Pigtail 5 Fr catheter was advanced over the wire and used for LV Angiography. 17:25:14 LV gram done using TEMPLETON 17:25:18 Injector settings: Ml/sec: 10, Volume: 20, 17:25:39 EF : 60 % 17:25:43 Catheter removed. 17:25:50 A MULTIPACK JL 4.0 5Fr catheter was advanced over the wire and used for Left Coronary Angiography. 17:26:34 LCA angiography performed. 17:27:03 Catheter removed. 17:27:13 A MULTIPACK 3DRC 5Fr catheter was advanced over the wire and used for Right Coronary Angiography. 17:28:08 RCA angiography performed. 17:28:11 Catheter removed. 17:28:14 Proceeding to intervention. 17:28:20 SHEATH 6FR Keller (HLJ817) opened to sterile field. 17:28:21 Coleman Verrata Plus pressure wire (27675X) opened to sterile field. 17:28:22 INFLATOR Merit BasixCompak (JT1416) opened to sterile field. 17:28:41 Sheath upsized to a 6 Fr Short. 17:29:06 GUIDE 6FR XBLAD 3.5 catheter ([id number]) opened to sterile field. 17:29:20 6 Fr XBLAD3.5 guide catheter was inserted over the wire 17:29:32 FFR/IFR wire advanced. 17:29:53 Wire advanced across lesion. 17:31:28 mCirc lesion measured at 0.78 with IFR 17:32:02 IFR WIRE IS REDIRECTED TO LAD. 17:32:14 mLAD lesion measured at 0.81 with IFR 17:32:44 Wire removed. 17:32:59 CHOICE PT Extra Support 182cm wire ([id number]) opened to sterile field. 17:33:08 Heparin Bolus 4000 units I.V. was administered by Chantell Branch RN; for anticoagulation; verified with dr trotter Verbal order read back and verified. 17:33:25 CHOICE PT wire advanced ACROSS LAD. 17:34:34 Pre PCI Site: Pala mLAD has 85% stenosis. 17:35:48 Place stent Inflation Number: 1 A MARY RX 2.25 x 15 stent ([id number]) was prepped and advanced across the Mid LAD . The stent was deployed at 13 WILL for 0:10 (min:sec) . 17:35:55 Stent catheter was removed intact over wire. 17:36:55 Place stent Inflation Number: 2 A MARY RX 2.75 x 12 stent ([id number]) was prepped and advanced across the Mid LAD . The stent was deployed at 15 WILL for 0:00 (min:sec) . 17:37:23 Stent catheter was removed intact over wire. 17:37:52 Wire redirected to CIRC. 17:38:41 Place stent Inflation Number: 1 A MARY RX 2.75 x 18 stent ([id number]) was prepped and advanced across the Mid CX . The stent was deployed at 23 WILL for 0:00 (min:sec) . 17:38:50 Stent catheter was removed intact over wire. 17:39:11 Wire removed. 17:39:12 Guide catheter removed. 17:39:59 EXOSEAL 6Fr (EX600) opened to sterile field. 17:40:16 Sheath removed intact; hemostasis achieved with Exoseal to the Right Femoral artery. 17:40:20 Procedure ended.(Physican Out) 17:40:38 Contrast amount:Isovue 300 127ml. 17:40:41 Maximum allowable dose exceeded? No. 17:40:48 ACT drawn and resulted at 279 seconds. (normal therapeutic range 180-240 seconds). 17:41:04 Fluoroscopy time 05.10 minutes. 17:41:10 Flurop Dose total: 528 17:41:10 Fluoroscopy dose: 528 mGy 17:41:16 Dose Area Product 34000 mGy/cm. 17:41:18 Sharps counted by scrub and verified by R.N. 17:41:20 Insertion/operative site no bleeding no hematoma. 17:41:26 Post-op/insertion site Right Femoral artery dressed using a 4 x 4 and Tegaderm. 17:41:32 Post right femoral artery:stable 17:41:35 Post Procedure Pulses reassessed and unchanged 17:41:38 Post-procedure physical assessment completed. ASA score P 2 - A patient with mild systemic disease as per Rocky Trotter MD. 17:41:42 Post procedure rhythm: unchanged. 17:41:46 Estimated blood loss: 10 ml 17:41:48 Post procedure instruction explained to patient.Patient verbalizes understanding. 17:41:50 Patient needs reinforcement of post procedure teaching. 17:42:54 Procedure type changed to Cath procedure, Diagnostic procedure, LHC, [facility] w/Coronaries, FFR/IVUS, FFR Initial, Sedation Charges, Moderate Sedation up to 15 minutes, PCI procedure, Coronary Stent, Coronary Stent Initial x2 17:42:56 Procedure and supply charges have been captured, reviewed, submitted and are correct. 17:43:51 Procedure Complication : No complications 17:43:55 Vital chart was stopped 17:43:58 [facility] Findings: MVD- PCI performed (see procedure note) 17:44:03 Operative report dictated upon procedure completion. 17:44:05 See physician's report for complete and final results. 17:44:07 Report given to [facility]. 17:44:12 Patient transfered to [facility] with Bed. 17:44:15 Procedure ended. 17:44:15 Full Disclosure recording stopped 17:44:42 ACC-PCI Only Patient was given prescriptions, or instructed by Rocky Trotter MD to start/continue the following medications upon discharge: Plavix 17:45:56 End room use (Document Last) Intervention Summary Intervention Notes Time ActionType Lesion and Equipment Used Action# Pressure Duration Attributes 17:35:48 Place stent Mid LAD MARY RX 2.25 x 1 13 00:10 15 stent ([id number]) 17:36:55 Place stent Mid LAD MARY RX 2.75 x 2 15 00:00 12 stent ([id number]) 17:38:41 Place stent Mid CX MARY RX 2.75 x 1 23 00:00 18 stent ([id number]) Device Usage Item Name Manufacture Quantity Catalog Number Hospital Part Current Minimal Lot# / Charge Number Stock Stock Serial# Code ACIST Syringe Acist 1 70503 292444 192462 649813 20 (54530) Medical Systems Inc Bag Decanter Microtek 1 2001S 289428 44938 907118 5 () Medical Inc. ACIST Hand Acist 1 97611 440318 553600 492830 5 Control Medical (84255) Systems Inc ACIST Manifold Acist 1 56348 661412 230314 129361 5 (87693) Medical Systems Inc Tegaderm 4 x 4 3M 1 1626W 946504 172134 601073 5 (1626W) Medline Cath Medline 1 [id number] 392883 25868 563391 5 Pack ([id number]) DIAGNOSTIC Cardinal 1 MA3216 466743 57585 469116 30 Multipack 5Fr Health catheter set (KX5060) SHEATH 5FR Terumo 1 ZCK749 372383 500767 602945 5 Keller (PWB387) EMERALD Guide Cardinal 1 502-455 394338 679559 805956 5 Wire (502-455) Health MULTIPACK Cardinal 1 841757 5 Pigtail 5 Fr Health catheter MULTIPACK JL Cardinal 1 589952 5 4.0 5Fr Health catheter MULTIPACK 3DRC Cardinal 1 726097 5 5Fr catheter Health SHEATH 6FR Terumo 1 PEP788 243686 843626 893603 40 Keller (VXR580) Coleman Coleman 1 47958S 771274 979828258 526079 5 Verrata Plus pressure wire (57352P) INFLATOR Merit Merit 1 XT0728 003946 326653 541074 15 FarmLink (NE9836) GUIDE 6FR Cardinal 1 [id number] 338314 712124 085390 10 XBLAD 3.5 Health catheter ([id number]) CHOICE PT [place] 1 [id number] 674612 180618 773302 5 Extra Support Scientific 182cm wire ([id number]) MARY RX 2.25 x Medtronic 1 [id number] 755581 5852448 825946 5 [id number] 15 stent ([id number]) MARY RX 2.75 x Medtronic 1 [id number] 802164 7837983 363105 5 [id number] 12 stent ([id number]) MARY RX 2.75 x Medtronic 1 [id number] 167293 8192851 177881 5 [id number] 18 stent ([id number]) EXOSEAL 6Fr Cardinal 1 EX600 991842 158588 626406 10 (EX600) Health Signature Audit [place] Stage Time Signature Unsigned Intra-Procedure 07/20/2019 Mindy 5:48:05 PM Elmer RT(R) (CV) Intra-Procedure 07/20/2019 Chantell Branch RN 5:48:43 PM Intra-Procedure 07/20/2019 Rocky Trotter 5:49:09 PM [facility] [address] [place] [address]
[2019-07-19] MEDS ORDERED: IRON INFUSION (16:27)
[2019-07-19] MEDS ORDERED: XOPENEX 1.1.25 MG/3 UPD (16:28)
--- NOTE | 2019-07-19 16:36 | NUR ---
STROKE BAND [id number]
[2019-07-19 17:16] LABS: BASOPHILS 0.5 % (0-2); EOSINOPHILS 3.9 % (0-7); HEMATOCRIT 42.4 % (36.0-48.0); HEMOGLOBIN 12.6 g/dL (12-16); IMMATURE GRANULOCYTES 0.2 % (0-5); LYMPHOCYTES 28.3 % (15-50); MCH 26.5 pg (26.0-34.0); MCHC 29.7 g/dL (31.0-37.0); MCV 89.1 fL (80.0-100.0); MEAN PLATELET VOLUME 10.9 fL (7.4-10.4); MONOCYTES 10.1 % (2-11); PLATELET COUNT 220 10x3/uL (130-400); RBC 4.76 10x6/uL (4.00-5.40); WBC 5.9 10x3/uL (4.8-10.8)
[2019-07-19 17:24] LABS: APTT 34.1 SECONDS (22.8-39.4); CALC OSMOLALITY 282 mosm/kg (275-300); CALCIUM 8.3 mg/dL (8.5-10.1); CHLORIDE - SERUM 104 mmol/L (98-107); CREATININE - SERUM 0.7 mg/dL (0.6-1.3); GLUCOSE 87 mg/dL (74-106); POTASSIUM - SERUM 4.7 mmol/L (3.5-5.1); PROTIME 12.7 SECONDS (11.6-15.0); SODIUM 141 mmol/L (136-145); UREA NITROGEN 20 mg/dL (7-18); eGFR NON AFRICAN AMERICAN 87 mL/min (90-120)
[2019-07-19 17:46] LABS: ALBUMIN 3.6 g/dL (3.4-5.0); ALKALINE PHOSPHATASE 173 U/L (46-116); ALT (SGPT) 31 U/L (10-68); CKMB 1.8 U/L (0.0-3.6); CREATINE KINASE 82 UL (21-215); PROTEIN - SERUM 6.5 g/dL (6.4-8.2); THYROID STIMULATING HORMONE 0.11 uIU/mL (0.36-3.74)
[2019-07-19 17:49] LABS: TROPONIN-I 0.073 ng/mL (0.000-0.060)
[2019-07-19 18:12] LABS: APPEARANCE CLEAR (CLEAR); COLOR STRAW (YELLOW)
[2019-07-19 18:13] LABS: BILIRUBIN NEGATIVE (NEGATIVE); GLUCOSE NEGATIVE (NEGATIVE); KETONE NEGATIVE (NEGATIVE); NITRITE NEGATIVE (NEGATIVE); PROTEIN NEGATIVE (NEGATIVE); UROBILINOGEN NORMAL (NORMAL)
[2019-07-19 18:31] VITALS: BP 170/82
[2019-07-19 18:46] VITALS: BP 182/62
--- NOTE | 2019-07-19 19:10 | NUR ---
PT RESTING ON BED. PT AND FAMILY UPDATED ON PLAN OF CARE. PT AWAKE AND ALERT. NO S/S OF ACUTE DISTRESS NOTED.
[2019-07-19 21:37] VITALS: BP 135/50; BMI 37.6
[2019-07-19] MEDS ORDERED: ROBAXIN500 MG PO ×2 (21:54→22:26)
--- NOTE | 2019-07-19 22:17 | NUR ---
PT ARRIVED VIA STRETCHER FORM ER AT 2048 HRS. NO DISTRESS NOTED. FAMILY AT BEDSIDE. ADMISSION ASSESMENT, HISTORY AND HOME MED LIST COMPLETED BY 2200 HRS. IV TO RAC ADAM. R HAND WEAKNESS. ALERT AND ORIENTED TO PERSON, PLACE AND TIME. [place]. SR PER CM HR 92. VSS. NON SLIP SOCKS PLACED ON PT. FAMILY AT BEDSIDE. SR UP X2, CALL LIGHT WITHIN REACH AND BED ALARM ON.
--- NOTE | 2019-07-19 22:45 | NUR ---
DR LUTZ PAGED AT 2223 HRS. INFORMED OF PT'S C/O CHRONIC BACK PAIN AND HOME MEDS. NEW ORDERS RECEIVED AND NOTED.
--- NOTE | 2019-07-19 23:44 | NUR ---
PT STATES ARIANE IS HELPING HER CHRONIC BACK PAIN. NO CHANGE IN NEURO STATUS NOTED. SR UP X2, CALL LIGHT WITHIN REACH AND BED ALARM ON.
[2019-07-20 00:23] VITALS: BP 112/46
--- NOTE | 2019-07-20 00:43 | NUR ---
PT RESTING WITH EYES CLOSED RESP EVEN AND REGULAR. SR UP X2, CALL LIGHT WITHIN REACH, CALL LIGHT WITHIN REACH AND BED ALARM ON.
--- NOTE | 2019-07-20 02:46 | NUR ---
PT RESTING WITH EYES CLOSED. RESP EVEN AND REGULAR. SR UP X2, CALL LIGHT WITHIN REACH AND BED ALARM ON.
[2019-07-20 04:00] VITALS: BP 136/44
--- NOTE | 2019-07-20 04:00 | NUR ---
PT RESTING WITH EYES CLOSED. RESP EVEN AND REGULAR. SR UP X2, CALL LIGHT WITHIN REACH AND BED ALARM ON.
[2019-07-20 06:31] LABS: BASOPHILS 0.6 % (0-2); EOSINOPHILS 4.5 % (0-7); HEMATOCRIT 38.5 % (36.0-48.0); HEMOGLOBIN 11.4 g/dL (12-16); IMMATURE GRANULOCYTES 0.2 % (0-5); LYMPHOCYTES 27.5 % (15-50); MCH 26.3 pg (26.0-34.0); MCHC 29.6 g/dL (31.0-37.0); MCV 88.7 fL (80.0-100.0); MEAN PLATELET VOLUME 11.5 fL (7.4-10.4); MONOCYTES 11.1 % (2-11); NEUTROPHILS 56.1 % (40-80); PLATELET COUNT 205 10x3/uL (130-400); RBC 4.34 10x6/uL (4.00-5.40); RDW 18.9 % (11.5-14.5); WBC 5.4 10x3/uL (4.8-10.8)
[2019-07-20 06:53] LABS: ALKALINE PHOSPHATASE 147 U/L (46-116); BILIRUBIN - TOTAL 0.33 mg/dL (0.2-1.3); CALC OSMOLALITY 288 mosm/kg (275-300); CALCIUM 8.5 mg/dL (8.5-10.1); CHLORIDE - SERUM 108 mmol/L (98-107); CKMB 1.3 U/L (0.0-3.6); CREATINE KINASE 57 UL (21-215); GLUCOSE 83 mg/dL (74-106); PROTEIN - SERUM 5.8 g/dL (6.4-8.2); SODIUM 144 mmol/L (136-145); TROPONIN-I 0.053 ng/mL (0.000-0.060); UREA NITROGEN 20 mg/dL (7-18)
[2019-07-20 06:54] LABS: ALT (SGPT) 60 U/L (10-68); CREATININE - SERUM 1.2 mg/dL (0.6-1.3); eGFR NON AFRICAN AMERICAN 46 mL/min (90-120)
[2019-07-20 12:47] VITALS: BP 159/49
--- NOTE | 2019-07-20 13:57 | NUR ---
I have reviewed this patient and I concur with the Shift Assessment completed by the Licensed Practical Nurse today this shift.
[2019-07-20 14:55] VITALS: Ht 162.6 cm; Wt 99.3 kg
[2019-07-20 16:40] VITALS: BP 159/49
--- NOTE | 2019-07-20 16:48 | NUR ---
TO CRAP GAME BOX PERSON PER BED
[2019-07-20 20:41] VITALS: BP 158/71
[2019-07-21 00:58] VITALS: BP 107/48
--- NOTE | 2019-07-21 01:12 | NUR ---
I have reviewed this patient and I concur with the Shift Assessment completed by the Licensed Practical Nurse today this shift.
--- NOTE | 2019-07-21 02:13 | NUR ---
RESTING WITH EYES CLOSED, RESPERATIONS EVEN, NO S/S DISTRESS NOTED.
[2019-07-21 04:49] VITALS: BP 131/49
[2019-07-21 06:24] LABS: BASOPHILS 0.1 % (0-2); EOSINOPHILS 0.1 % (0-7); HEMATOCRIT 40.2 % (36.0-48.0); HEMOGLOBIN 12.1 g/dL (12-16); IMMATURE GRANULOCYTES 0.2 % (0-5); LYMPHOCYTES 9.1 % (15-50); MCH 26.3 pg (26.0-34.0); MCHC 30.1 g/dL (31.0-37.0); MCV 87.4 fL (80.0-100.0); MEAN PLATELET VOLUME 10.6 fL (7.4-10.4); MONOCYTES 7.2 % (2-11); NEUTROPHILS 83.3 % (40-80); PLATELET COUNT 210 10x3/uL (130-400); RDW 18.8 % (11.5-14.5)
[2019-07-21 06:39] LABS: ANION GAP 7.4 mmol/L (8-16); CALCIUM 8.4 mg/dL (8.5-10.1); CARBON DIOXIDE 31.5 mmol/L (21.0-32.0); CREATININE - SERUM 1.1 mg/dL (0.6-1.3); POTASSIUM - SERUM 4.9 mmol/L (3.5-5.1)
[2019-07-21 07:01] LABS: WBC 12.2 10x3/uL (4.8-10.8)
--- NOTE | 2019-07-21 07:25 | NUR ---
ASSESSMENT DONE. DENIES NEEDS
[2019-07-21 09:14] VITALS: BP 135/54
--- NOTE | 2019-07-21 10:06 | NUR ---
I have reviewed this patient and I concur with the Shift Assessment completed by the Licensed Practical Nurse today this shift.
--- NOTE | 2019-07-21 14:19 | NUR ---
UPON ADMIT, PATIENT HAS ALREADY HAD THE FLU SHOT.
--- NOTE | 2019-07-21 14:32 | NUR ---
SCRIPT NOT SIGNED BY DR PETE FOR PLAVIX AND PRAVACHOL. I TRIED SEVERAL TIMES TO CALL [facility] AND ALL THAT I GET IS A VOICEMAIL TO LEAVE IT ON. PER THE PATIENT'S PERMISSION, I CALLED [facility] AND SPOKE TO JORGE-PHARMACIST.
[2019-07-21] MEDS ORDERED: PLAVIX75 MG PO (14:42)
[2019-07-21] MEDS ORDERED: PRAVACHOL20 MG PO (14:42)
--- NOTE | 2019-07-21 15:16 | NUR ---
DC GIVEN TO PT
[2019-07-21 15:22] VITALS: BP 121/48
--- NOTE | 2019-07-21 15:44 | NUR ---
DC HOME PER PERSONAL CAR
--- NOTE | 2019-07-21 16:44 | MORECARE ---
CASE MANAGEMENT DISCHARGE SUMMARY PATIENT: BRYSON NOONAN UNIT: [id number] ADM DATE: 07/20/19 AGE: 74 : 45 SEX: F ROOM/BED: D.9071 AUTHOR: RONA,DOC PHYSICIAN: REFERRING PHYSICIAN: ROXANA LUTZ MD DATE OF SERVICE: 07/21/19 Discharge Plan Patient Name: BRYSON NOONAN Facility: [facility]:[place] : 1945 Planned Disposition: Home Anticipated Discharge Date: 07/21/19 Discharge Date: 07/21/2019 Expected LOS: 1 Initial Reviewer: [email or web address] Initial Review Date: 07/21/2019 Generated: 07/21/19 5:43 pm Comments DCP- Discharge Planning Updated by [email or web address]: Mg Oates on 07/21/19 3:[address] Patient Name: BRYSON NOONAN Admission Status: ER Accout number: [id number] Admission Date: 07-20-2019 : 1945 Admission Diagnosis: Attending: ROXANA LUTZ Current LOS: 1 Anticipated DC Date: 07-21-2019 Planned Disposition: Home Primary Insurance: MEDICARE A & B Discharge Planning Comments: CM MET WITH PT IN ROOM TO DISCUSS DISCHARGE PLANNING AND NEEDS. PT REPORTS LIVING AT HOME INDEPENDENTLY AND ALONE AT [facility] ([place], [place]). PT REPORTS FEELING SAFE SHE HAS OUTER DIAMETER TECHNICIAN PRESENT DURING DAY AND THE BUILDING IS LOCKED AT NIGHT. PT HAS CANE, BEDSIDE COMMODE, SHOWER CHAIR, GLUCOMETER AND ROLLATOR WALKER WITH NO MEDICAL EQUIPMENT PROVIDER PREFERENCE. PT HAS NO OUTSIDE SERVICES ASSISTING IN THE HOME. CM DISCUSSED AVAILABILITY OF HOME HEALTH, REHAB SERVICES AND MEDICAL EQUIPMENT. PT DENIES DISCHARGE NEEDS, REPORTS HER SISTER WILL PICK HER UP FOR DISCHARGE HOME. 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 Pile Driving Nozzleman: Mg Oates DCPIA - Discharge Planning Initial Assessment Updated by [email or web address]: Mg Oates on 07/21/19 4:40 pm * Is the patient Alert and Oriented? Yes * How many steps to enter\exit or inside your home? RAMP * PCP DR. LUTZ * Pharmacy [facility] * Preadmission Environment Home Alone * ADLs Independent * Equipment Cane Glucometer Shower Chair Walker * Other Equipment ROLLATOR WALKER NO MEDICAL EQUIPMENT PROVIDER PREFERENCE * List name and contact numbers for known caregivers / representatives who currently or will assist patient after discharge: ALLIE DE LEON DTR, KAYCEE OCHOA, SISTER, * Verbal permission to speak to the caregivers and representatives has been obtained from the patient. Yes * Community resources currently utilized None * Please name any agencies selected above. NONE * Additional services required to return to the preadmission environment? No * Can the patient safely return to the preadmission environment? Yes * Has this patient been hospitalized within the prior 30 days at any hospital? No Coverage Notice Reviewer: [email or web address] Иван Bonilla Notice Issued Date-Time: 07/19/2019 19:40 Notice Type: Medicare Outpatient Observation Notice Notice Delivered To: Patient Relationship to Patient: Self Kids Club Attendant Name: Bryson Noonan Delivery Method: HAND - Hand Delivered Mary Jo Days: Prior Verbal Notification: Recipient Understood Notice: Yes Recipient Signature: Yes Med Rec Note Co-signed by Attending: Coverage Notice Comment: RIGGS delivered to and signed by patient. Originals to patient and to chart. Patient Name: BRYSON NOONAN Page [phone] at 1644 All edits/amendments must be made on the electronic document DICTATION DATE: 07/21/191642 ORE GRADER: CASSIDY 07/21/191642 RPT#: [id number] DC DATE:07/21/19 STATUS: DIS IN [facility] [address] [place] [address] END OF REPORT
--- NOTE | 2019-07-22 14:08 | OP ---
PATIENT NAME: BRYSON NOONAN MEDICAL RECORD: [id number] :45 LOCATION:D.M2 D.2124 ADMISSION DATE:07/20/19 SURGEON: JAKI PETE MD DATE OF OPERATION: 07/20/2019 PROCEDURES: 1. PTCA and stent of LAD. 2. PTCA and stent of left circumflex. 3. IFR of LAD. 4. Doppler of left circumflex. 5. Left heart catheterization. 6. Selective coronary angiography. 7. Left ventriculogram. INDICATION: Non-Q-wave myocardial infarction. DESCRIPTION OF PROCEDURE: After informed consent was obtained and after detailed explanation of risks, benefits as well as alternative therapies, the patient elected to proceed with angiogram and angioplasty. The right femoral area was prepped and draped in normal sterile fashion. Right femoral artery was cannulated via modified Seldinger technique with placement of 6-Nepali sheath. All catheters exchanged through this sheath. FINDINGS: Left ventriculogram was performed in a standard 30-degree TEMPLETON view, reveals good cardiac wall motion and ejection fraction of 60%. SELECTIVE CORONARY ANGIOGRAPHY: 1. Left main is with no significant angiographic disease. 2. Left anterior descending has 80% to 90% stenosis in 2 spots in the proximal and mid vessel. 3. The left circumflex has 75% to 80% stenosis in the mid vessel. 4. IFR is abnormal in the LAD as well as the left circumflex. 5. Right coronary has mild irregularities, but no flow-limiting stenosis. PTCA AND STENT OF THE LAD: Stents used were 2.75 x 12 and 2.25 x 15, both [place] stents. Result was 0% residual stenosis. PTCA AND STENT OF THE LEFT CIRCUMFLEX: The stent used was a 2.75 x 18-mm Obbby stent. Result was 0% residual stenosis. OVERALL IMPRESSION: Successful PTCA and stent of the left circumflex and LAD, both going from 75% to 85% initial stenosis with abnormal IFR to 0% residual stenosis. TRANSINT:[id number] Voice Confirmation ID: [id number] DOCUMENT ID: [id number] JAKI PETE MD at 1408 CC: [id number] DICTATION DATE: 07/20/19 1745 PRODUCT DEVELOPMENT: 07/21/19 0144 DIS IN 07/21/19 [facility] [address] [place] [address]
--- NOTE | 2019-07-22 14:08 | CN ---
PATIENT NAME:BRYSON MOYA MEDICAL RECORD: [id number] : 45 LOCATION:D. D.2124 ADMIT DATE: 07/20/19 ACCOUNT: [id number] CONSULTING PHYSICIAN: JAKI PETE MD REFERRING PHYSICIAN: ROXANA LUZT MD DATE OF CONSULTATION: 07/20/2019 DIAGNOSIS: Non-Q-wave myocardial infarction. HISTORY OF PRESENT ILLNESS: Mrs. Moya presents with chest pain and multiple other areas of pain; however, she did have chest pain and chest pressure, it was a relative classic anginal symptomatology and she had a dull aching pressure-like sensation on the anterior chest. She as well had arm pain, leg pain, abdominal pain, but the chest pressure was new as of this week. She as well has been more short of breath and this is new as of this week. She has no history of ischemic heart disease. She has a very strong family history of ischemic heart disease. Her troponin is positive for a non-Q-wave myocardial infarction. She continues to have the episodes of chest pressure now. PHYSICAL EXAMINATION: CONSTITUTIONAL/GENERAL APPEARANCE: Well nourished, well developed, appears stated age. EYES: Lids and conjunctivae noninjected. No discharge. No pallor. ENT: Lips within normal limit. No cyanosis. No pallor. NECK: Carotid arteries, bilateral normal upstroke. No bruits. No thrills. No jugular venous pressure or distention. CERVICAL LYMPH NODES: Nontender. Nonenlarged. THYROID: Not enlarged. No nodules. CARDIOVASCULAR: Precordial exam, nondisplaced. No heaves or pericardial thrills. Rate and rhythm, regular. Heart sounds, normal S1, normal S2. No S3, no gallop, no rub. Systolic murmur, not heard. Diastolic murmur, not heard. RESPIRATORY: Respiratory effort, unlabored. Normal curvature. No thoracic deformity. No chest wall tenderness. Percussion, resonant. Auscultation, clear. No wheezes, no rales, no rhonchi. ABDOMEN: Soft, nondistended, nontender. No abdominal pain, no vomiting and normal appetite. MUSCULOSKELETAL: No joint tenderness, normal gait, normal tone. SKIN: Warm and dry. OVERALL IMPRESSION: Elevated troponin, non-Q-wave myocardial infarction. Her chest pressure is most likely cardiac in nature. We will proceed with coronary angiography. Further care depends upon findings of the angiography. TRANSINT:[id number] Voice Confirmation ID: [id number] DOCUMENT ID: [id number] JAKI PETE MD at 1408 CC: [id number] DICTATION DATE: 07/20/19811 OCCUPATIONAL PSYCHOLOGIST: 07/20/19 0945 DIS IN 07/21/19 [place] [id number] [place] [id number]
--- NOTE | 2019-07-22 14:08 | EC ---
PATIENT:BRYSON NOONAN DATE OF SERVICE: 07/20/19 SEX: F MEDICAL RECORD: [id number] DATE OF : 45 LOCATION:D. D.212 AGE OF PATIENT: 74 ADMISSION DATE: 07/20/19 REFERRING PHYSICIAN: INTERPRETING PHYSICIAN: JAKI TROTTER MD ECHOCARDIOGRAM REPORT ECHO CHARGES 4 ECHO COMPLETE Date: 07/20/19 CLINICAL DIAGNOSIS: WEAKNESS ECHOCARDIOGRAPHIC MEASUREMENTS (adult normal given) AC root (d.<3.7cm) 2.4 cm LV Septum d (<1.2 cm> 1.1 cm Valve Excursion 1.2 cm LV Septum (systole) 1.5 cm Left Atria (s.<4.0cm> 4.6 cm LVPW d(<1.2cm) 0.9 cm RV (d.<2.3cm) 3.4 cm LVPW (sytole) 1.1 cm LV diastole(<5.6CM) 4.9 cm MV E-F(>70mm/sec) cm LV systole 3.5 cm LVOT Diameter 1.9 cm MV exc.(>10mm) cm Est.ejection fraction (50-75%) % DOPPLER: LVIT cm/sec A 81 cm/sec E 103 cm/sec LA cm/sec RVSP 32.0 mmHg LVOT 98 cm/sec AOP1/2T m/s Asc. Ao 181 cm/sec RVOT 52 cm/sec RA cm/sec PA 73 cm/sec AV Gradient Peak 13.1 mmHg AV Mean 7.0 mmHg AV Area 1.5 cm MV Gradient Peak 4.8 mmHg MV Mean 2.6 mmHg MV Area cm COMMENTS: Manager Agriculture: Julia [facility] Studio Hand: 1 Dr. Trotter TAPE# PACS Pericardial Effusion N DATE OF SERVICE: FINDINGS: 1. Left ventricular chamber size is within normal limits. Left ventricular systolic function is normal. Overall ejection fraction estimated at 60%. 2. Left atrium is enlarged at 4.6 cm. Right atrium and right ventricular chamber sizes are within normal limits. 3. Valvular structures have normal structure and motion. 4. Doppler interrogation reveals mild mitral regurgitation, mild tricuspid regurgitation, no other valvular insufficiency or stenosis. Pulmonary systolic ECHOCARDIOGRAM REPORT [id number] BRYSON NOONAN pressure is normal, estimated at 32 mmHg. 5. No evidence of pericardial effusion or left ventricular thrombus. TRANSINT:[id number] Voice Confirmation ID: [id number] DOCUMENT ID: [id number] JAKI TROTTER MD at 1408 CC: [id number] DICTATION DATE: 07/20/19 1524 GAS ROLLER OPERATOR: 07/21/19 0032 DIS IN 07/21/19 [facility] [address] [place] [id number]
--- NOTE | 2019-08-03 09:29 | OP ---
PATIENT NAME: BRYSON NOONAN MEDICAL RECORD: [id number] :45 LOCATION:Yvonne Fallon2124 ADMISSION DATE:07/20/19 SURGEON: JAKI PEET MD DATE OF OPERATION: 07/20/2019 ADDENDUM The patient was placed on aspirin 81 mg every day in addition of Plavix after the procedure. TRANSINT:[id number] Voice Confirmation ID: [id number] DOCUMENT ID: [id number] JAKI PETE MD at 0929 CC: [id number] DICTATION DATE: 08/02/19 1129 EXPLOSIVE ORDNANCE HANDLER: 08/02/19 1214 DIS IN 07/21/19 [place] [id number] [place] [address]
== END 2019-07-21 15:45 | disposition home or self-care (01) | DRG 247 ==
LOC: D.ER 16:16 → D.M2 19:17 → OBSVTIME 19:17 → D.M2 07-20 18:57
PROVIDERS: Emergency Medicine; Family Medicine; Internal Medicine Interventional Cardiology; ADMIT Family Medicine; ATTEND Family Medicine
PROC: 4A023N7 Measurement of Cardiac Sampling and Pressure, Left Heart, Percutaneous Approach (ICD-10-PCS; 2019-07-20)
PROC: B2111ZZ Fluoroscopy of Multiple Coronary Arteries using Low Osmolar Contrast (ICD-10-PCS; 2019-07-20)
PROC: B2151ZZ Fluoroscopy of Left Heart using Low Osmolar Contrast (ICD-10-PCS; 2019-07-20)
PROC: 027136Z Dilation of Coronary Artery, Two Arteries with Three Drug-eluting Intraluminal Devices, Percutaneous Approach (ICD-10-PCS; principal; 2019-07-20 16:35)
PROC: 4A033BC Measurement of Arterial Pressure, Coronary, Percutaneous Approach (ICD-10-PCS; 2019-07-20 16:35)
DX: I21.4 Non-ST elevation (NSTEMI) myocardial infarction (principal); K90.9 Intestinal malabsorption, unspecified; E03.9 Hypothyroidism, unspecified; F41.8 Other specified anxiety disorders; J44.9 Chronic obstructive pulmonary disease, unspecified; R53.1 Weakness; D53.1 Other megaloblastic anemias, not elsewhere classified; E11.9 Type 2 diabetes mellitus without complications; I25.10 Atherosclerotic heart disease of native coronary artery without angina pectoris; Z86.73 Personal history of transient ischemic attack (TIA), and cerebral infarction without residual deficits

== ENCOUNTER → 2020-02-10 12:14 | Outpatient (CLI) | payer MEDICARE, OTHER ==
[2019-07-20 14:55] VITALS: BMI 37.6
[~2020-02-10 12:14] MED LIST changes: +IRON INFUSION; +PLAVIX75 MG PO; +PRAVACHOL20 MG PO; +ROBAXIN500 MG PO
[2020-02-10 12:40] LABS: HEMATOCRIT 41.6 % (36.0-48.0); HEMOGLOBIN 12.6 g/dL (12-16); MCH 27.4 pg (26.0-34.0); MCHC 30.3 g/dL (31.0-37.0); MCV 90.4 fL (80.0-100.0); MEAN PLATELET VOLUME 11.8 fL (7.4-10.4); RDW 13.7 % (11.5-14.5); WBC 7.2 10x3/uL (4.8-10.8)
[2020-02-10 12:55] LABS: PLATELET COUNT 289 10x3/uL (130-400)
[2020-02-10 15:09] LABS: LYMPHOCYTES 22 % (15-50); NEUTROPHILS 78 % (40-80); PLATELET ESTIMATE NORMAL
== END | disposition home or self-care (01) ==
LOC: D.LABREF 12:14
PROVIDERS: ATTEND Legal Medicine
DX: D64.89 Other specified anemias (principal); R42 Dizziness and giddiness

== ENCOUNTER → 2020-03-01 09:04 | Outpatient (CLI) | payer MEDICARE, OTHER ==
[2019-07-20 14:55] VITALS: BMI 37.6
== END | disposition home or self-care (01) ==
LOC: D.HCCARDIO 09:04
PROVIDERS: ATTEND Internal Medicine Cardiovascular Disease
DX: I25.10 Atherosclerotic heart disease of native coronary artery without angina pectoris (principal)

== ENCOUNTER 2020-03-07 10:21 | Inpatient (IN) | payer MEDICARE, OTHER ==
[2020-03-07] VITALS (7 sets, daily range): BP systolic 128–181; BP diastolic 48–84; BMI 38.5
[~2020-03-07] VITALS: Ht 160 cm; Wt 104.3 kg
--- NOTE | ~2020-03-07 | HEMODYNAMI ---
PATIENT:BRYSON NOONAN MEDICAL RECORD: [id number] : 45 LOCATION:[facility] [address] [id number] ADMISSION DATE: 03/07/20 Generatedon:03/08/202013:47 Patient name: BRYSON NOONAN Patient #: [id number] SSN: [id number] : 1945 Date of study: 03/08/2020 Page: Of Hemodynamic Procedure Report Patient Data Patient Demographics Procedure consent was obtained First Name: BRYSON Gender: Female Last Name: SHAISTA : 1945 Middle Initial: M Age: 75 year(s) Patient #: [id number] Race: SSN: [id number] Additional ID: [id number] Contact details [address]: [address] [place] [address] State: [place] City: [place] Zip code: [address] Past Medical History Allergies Allergen Reaction Date Comments Reported Other 07/20/2019 SHELLFISH, ALUBUTEROL, allergy IODINE, BETADINE, LEVOFLOXACIN, PCN Other 03/08/2020 PENICILLINS,SHELLFISH,IODINE, allergy ALBUTEROL, SOAP(FROM BETADINE) SEE LIST Admission Admission Data Admission Date: 03/07/2020 Admission Time: 16:00 Arrival Date: 03/08/2020 Arrival Time: 0:00 Room #: [facility] Height (in.): 62.99 BSA: 2.05 (m2) Height (cm.): 160 BMI: 40.62 (kg/m2) Weight (lbs.): 229.28 Weight (kg.): 104 Lab Results Lab Result Date: 03/08/2020 Lab Result Time: 0:00 Biochemistry Name Units Result Min Max BUN mg/dl 15 --(--*-)-- 7 18 CK-MB ng/ml 1.6 --(-*--)-- 0 3.6 Creatinine mg/dl 1.3 --(---*)-- 0.6 1.3 eGFR ml/min 42 *-(----)-- 90 120 NONAFRICAN Troponin l ng/ml 0.024 --(-*--)-- 0 0.06 CBC Name Units Result Min Max Hematocrit % 37 *-(----)-- 42 54 Hemoglobin g/dl 11.4 *-(----)-- 13.5 17.5 Procedure Procedure Types Cath Procedure Diagnostic Procedure [facility] w/Coronaries Sedation Charges Moderate Sedation up to 15 minutes Procedure Description Procedure Date Procedure Date: 03/08/2020 Procedure Start Time: 13:31 Procedure End Time: 13:45 Procedure Staff Name Function Terrence De La Fuente MD Performing Physician Mindy Payne RT Monitor Sana Alexander RT Scrub Madelyn Soriano RN Nurse Norah Coronel RT Family Worker Procedure Data Cath Procedure Fluoroscopy Diagnostic fluoroscopy Total fluoroscopy Time: 1.4 time: 1.4 min min Diagnostic fluoroscopy Total fluoroscopy dose: dose: 140.48 mGy 140.48 mGy Contrast Material Contrast Material Type Amount (ml) Isovue 300 33 Entry Location Entry Primary Successful Side Size Upsize Upsize Entry Closure Leong ccessful Closure Location (Fr) 1 (Fr) 2 (Fr) Remarks Device Remarks Radial Right 6 Fr Mechanical artery Short Compression Estimated blood loss: 5 ml Diagnostic catheters Device Type Used For End Catheter Placement DIAGNOSTIC [place] 110cm 5 Procedure Fr catheter ([id number]) Procedure Complications No complications Procedure Medications Medication Administration Route Dosage 0.9% NaCl I.V. 100 ml/hr Oxygen etCO2 Nasal cannula 2 l/min Lidocaine 2% added to field 20 Heparin Flush Bag added to field 2 bags (1000units/500ml NS) Radial Cocktail added to field 1 syringe (Verapamil 2mg/Nitro 400mcg/Heparin 1500units) Versed I.V. 1 mg Hemodynamics Rest BSA: 2.05 (m2) HGB: 11.4 (g/dl) O2 Consumption: Estimated: 180.64 (ml/min) O2 Co nsumption indexed: Estimated:88.12 (ml/min/m) Heart Rate: 62 (bpm) Pressure Samples Time Site Value (mmHg) Purpose Heart Use Rate(bpm) 13:36 LV 134/-5,13 Snapshot 75 Gradients Valve Time Site Site Mean SEP/DFP Peak To Heart Use 1 2 (mmHg) (sec/min) Peak Rate (mmHg) (bpm) Aortic 13:36 LV AO 64 Snapshots Pre Cath Intra NCS Post Cath Vital Signs Time Heart Resp SPO2 etCO2 NIBP (mmHg) Rhythm Pain Sedation Rate (ipm) (%) (mmHg) Status Level (bpm) 13:14:49 62 31 100 39.6 159/66(131) NSR 0 (11) 10(A) , No pain 13:19:48 55 10 100 30.6 Measuring SB 0 (11) 10(A) , No pain 13:20:25 57 13 99 19.4 158/61(118) SB 0 (11) 10(A) , No pain 13:25:00 55 14 100 20.2 162/67(126) SB 0 (11) 10(A) , No pain 13:29:59 57 12 96 11.9 Measuring SB 0 (11) 10(A) , No pain 13:30:29 59 10 100 31.4 153/68(115) SB 0 (11) 10(A) , No pain 13:35:00 63 16 98 34.4 146/66(106) SB 0 (11) 10(A) , No pain 13:39:24 70 10 97 17.9 145/68(116) SB 0 (11) 10(A) , No pain 13:43:50 68 8 100 39.6 149/72(119) SB 0 (11) 10(A) , No pain Medications Time Medication Route Dose Verified Delivered Reason Notes E ffectiveness by by 13:13:49 0.9% NaCl I.V. 100 Norred Madelyn used for ml/hr Sudhakar Soriano computer systems integrator 13:13:55 Oxygen etCO2 2 l/min Norred Madelyn used for Nasal Sudhakar Soriano procedure cannula RN 13:14:02 Lidocaine 2% added 20ml Norred Norred for local to vial Sudhakar De La Fuente MD anesthetic field 13:14:08 Heparin Flush added 2 bags Norred Norred used for Bag to Sudhakar De La Fuente MD procedure (1000units/500ml field NS) 13:14:14 Radial Cocktail added 1 Norred Norred used for (Verapamil to syringe Sudhakar De La Fuente MD procedure 2mg/Nitro field 400mcg/Heparin 1500units) 13:31:40 Versed I.V. 1 mg Norred Madelyn for Sudhakar Soriano sedation enamel applier Log Time Note 12:50:59 Informed consent obtained and on chart 12:51:48 Procedure Status Urgent Heart Cath (IP). 12:51:49 Time tracking: Regular hours (M-F 7:00 - 5:00) 12:51:51 Plan of Care:Hemodynamics will remain stable., Cardiac rhythm will remain stable., Comfort level will be maintained., Respiratory function will remain adequate., Patient/ family verbilizes understanding of procedure., Procedure tolerated without complication., Recovers from procedure without complications.. 12:51:54 Norah Coronel RT(R) sent for patient. Start room use. 13:03:27 Patient allergic to Other allergyPENICILLINS,SHELLFISH,IODINE, ALBUTEROL, SOAP(FROM BETADINE) SEE LIST 13:04:10 Lab Result : CK-MB 1.6 ng/ml 13:04:10 Lab Result : Creatinine 1.3 mg/dl 13:04:10 Lab Result : BUN 15 mg/dl 13:04:10 Lab Result : Hemoglobin 11.4 g/dl 13:04:10 Lab Result : Hematocrit 37 % 13:04:10 Lab Result : Troponin l 0.024 ng/ml 13:04:10 Lab Result : eGFR NONAFRICAN 42 ml/min 13:04:17 Arrival Date: 03/08/2020 12:00:00 AM 13:04:22 Patient Height : 62.99 inches 13:04:26 Patient Weight : 229.28 lbs 13:04:43 Is the patient allergic to Iodine/contrast media? Yes. 13:04:46 Was the patient premedicated? Yes 13:04:49 Is patient on blood thinner?Yes 13:04:53 ACC The patient was administered the following blood thiners within the last 24 hours: ACCPlavix 13:05:12 Lab results completed and on chart. 13:05:31 Stress Test: no; N/A ? 13:05:54 H&P Date Dictated: 03/08/2020 Within 30 days and on chart., ER History on chart.. 13:06:08 Patient diabetic? Yes. 13:08:36 Patient received from Med II to CCL 3 Alert and oriented. Tansferred to table in Supine position. 13:08:38 Warm blankets applied, and gabe hugger turned on for patient comfort. 13:08:38 Correct patient and procedure confirmed by team. 13:08:39 ECG and BP/O2 sat monitors applied to patient. 13:10:02 Pre-procedure instructions explained to patient. 13:10:02 Pre-op teaching completed and patient verbalized understanding. 13:10:08 Family unavailable. 13:10:09 Patient NPO since Midnight. 13:10:13 If diabetic: On Metformin? No 13:10:14 Patient not . Patient is over age 55. 13:10:16 Previous problem with sedation/anesthesia? No ? 13:10:17 Snore? Yes 13:10:18 Sleep apnea? No 13:10:19 Deviated septum? No 13:10:20 Opens mouth fully? Yes 13:10:20 Sticks out tongue? Yes 13:10:24 Airway obstruction? Yes ASTHMA 13:10:29 Dentures? No ? 13:10:33 Pre procedure: right dorsailis pedis pulse 1+ Palpable, but thready & weak; easily obliterated 13:10:36 Modified Mahendra's test Ulnar < 7 seconds 13:10:38 Patient pain scale 0/10 ?. 13:10:44 IV patent on arrival in right hand with 0.9% NaCl at [facility]. 13:10:48 Right Radial & Right Groin area was prepped with chlora-prep and draped in sterile fashion 13:10:49 Alarms reviewed by R. N. 13:10:50 Sharps counted by scrub and verified by R.N. 13:11:30 Vital chart was started 13:11:37 Rhythm: sinus rhythm 13:11:38 Full Disclosure recording started 13:13:16 Baseline sample Acquired. 13:13:28 Use device set Radial Dx or PCI 13:13:30 ACIST Syringe (85179) opened to sterile field. 13:13:30 Bag Decanter (2001S) opened to sterile field. 13:13:31 ACIST Hand Control (40995) opened to sterile field. 13:13:31 ACIST Manifold (55250) opened to sterile field. 13:13:31 Tegaderm 4 x 4 (1626W) opened to sterile field. 13:13:33 Medline Cath Pack ([id number]) opened to sterile field. 13:13:33 MBrace Wrist Support ([id number]) opened to sterile field. 13:13:35 EMERALD Guide Wire (527-525) opened to sterile field. 13:13:36 SHEATH 6FR RAIN (4803477) opened to sterile field. 13:13:49 0.9% NaCl 100 ml/hr I.V. was administered by Madelyn Soriano RN; used for procedure; Verbal order read back and verified. 13:13:55 Oxygen 2 l/min etCO2 Nasal cannula was administered by Madelyn Soriano RN; used for procedure; Verbal order read back and verified. 13:14:02 Lidocaine 2% 20ml vial added to field was administered by Terrence De La Fuente MD; for local anesthetic; Verbal order read back and verified. 13:14:08 Heparin Flush Bag (1000units/500ml NS) 2 bags added to field was administered by Terrence De La Fuente MD; used for procedure; Verbal order read back and verified. 13:14:14 Radial Cocktail (Verapamil 2mg/Nitro 400mcg/Heparin 1500units) 1 syringe added to field was administered by Terrence De La Fuente MD; used for procedure; Verbal order read back and verified. 13:22:35 Risk of Mortality: 0.4 13:22:40 Risk of blood transfusion: 3.6 13:22:51 Risk of LAYA: 2.5 13:25:44 Zero performed for pressure channel P1 13:25:59 Physician paged 13:26:00 Physician responded to page. 13:30:59 --------ALL STOP TIME OUT------ 13:31:00 Final Timeout: patient, procedure, and site verified with staff and physician. All members of the team are in agreement. 13:31:02 Right Radial & Right Groin site verified by team. 13:31:06 Fire Safety Assessment: A--An alcohol-based skin anteseptic being used preoperatively., C--Open oxygen or nitrous oxide is being used., D--An ESU, laser, or fiber-optic light is being used. 13:31:10 Physical assessment completed. ASA score P 2 - A patient with mild systemic disease as per Terrence De La Fuente MD. 13:31:18 3a) 45-59 Moderately reduced kidney function. 13:31:23 Maximum allowable contrast dose (3.7 X eGFR X 0.75)116 ml. 13:31:27 Sedation plan: IV Moderate Sedation Medication:Versed, Fentanyl 13:31:32 Procedure started. 13:31:40 Versed 1 mg I.V. was administered by Madelyn Soriano RN; for sedation; Verbal order read back and verified. 13:31:45 Local anesthetic to right radial artery with Lidocaine 2% by Terrence De La Fuente MD.INITIAL ACCESS ONLY 13:33:57 A 6 Fr Short sheath was inserted into the Right Radial artery 13:34:11 A DIAGNOSTIC [place] 110cm 5 Fr catheter ([id number]) was advanced over the wire and used for Procedure. 13:35:02 Injector settings: Ml/sec: 12, Volume: 8, 13:36:06 LV hemodynamics recorded. 13:36:08 LV gram done using TEMPLETON 13:37:08 EF : 50 % 13:37:15 RCA angiography performed. 13:37:19 Injector settings: Ml/sec: 3, Volume: 6, 13:37:53 LCA angiography performed. 13:38:08 Injector settings: Ml/sec: 3, Volume: 6, 13:41:59 Catheter removed. 13:42:07 Procedure ended.(Physican Out) 13:42:27 ZEPHYR REGULAR TR BAND (314038) opened to sterile field. 13:42:44 Contrast amount:Isovue 300 33ml. 13:43:07 Fluoroscopy time 01.40 minutes. 13:43:16 Fluoroscopy dose: 140.48 mGy 13:43:16 Flurop Dose total: 140.48 13:43:25 Dose Area Product 1416.34 mGy/cm. 13:43:30 Maximum allowable dose exceeded? No. 13:43:31 Sharps counted by scrub and verified by R.N. 13:43:43 Sheath removed intact; hemostasis achieved with Mechanical Compression to the Right Radial artery. 13:43:49 Tullos band inflated with 10cc of air. 13:44:00 Post right radial artery:stable 13:44:07 Post-procedure physical assessment completed. ASA score P 2 - A patient with mild systemic disease as per Terrence De La Fuente MD. 13:44:14 Post procedure rhythm: unchanged. 13:44:17 Estimated blood loss: 5 ml 13:44:19 Post procedure instruction explained to patient.Patient verbalizes understanding. 13:44:21 Patient needs reinforcement of post procedure teaching. 13:44:47 Procedure type changed to Cath procedure, Diagnostic procedure, LHC, [facility] w/Coronaries, Sedation Charges, Moderate Sedation up to 15 minutes 13:44:48 Procedure and supply charges have been captured, reviewed, submitted and are correct. 13:45:16 Procedure Complication : No complications 13:45:19 Vital chart was stopped 13:45:24 [facility] Findings: mild to moderate CAD (<70%) 13:45:26 Operative report dictated upon procedure completion. 13:45:27 See physician's report for complete and final results. 13:45:31 Report given to [facility]. 13:45:41 Patient transfered to [facility] with Bed. 13:45:44 Procedure ended. 13:45:44 Full Disclosure recording stopped 13:45:53 End room use (Document Last) Device Usage Item Name Manufacture Quantity Catalog Hospital Part Current Minima l Lot# / Number Charge Number Stock Stock Serial# Code ACIST Acist 1 30709 497462 [id number] 108501 20 Syringe Medical (54692) Systems Inc Bag Microtek 1 496324 89080 295233 5 Decanter Medical Inc. () ACIST Hand Acist 1 40915 588040 761526 870647 5 Control Medical (31537) Systems Inc ACIST Acist 1 45291 750146 631708 881109 5 Manifold Medical (66547) Systems Inc Tegaderm 4 3M 1 1626W 158139 244645 929222 5 x 4 (1626W) Medline Medline 1 [id number] 385988 56009 072340 5 Cath Pack ([id number]) MBrace Advanced 1 140-0250-00 276925 63897 120791 5 Wrist Vascular Support Dynamics ([id number]) EMERALD Cardinal 1 502-455 541875 457069 348575 5 Guide Wire Health (355-332) SHEATH 6FR Cardinal 1 0287669 663657 2495013 828589 5 [facility] Health (4957761) DIAGNOSTIC Terumo 1 40-0152 828331 385078 254196 5 [place] 110cm 5 Fr catheter (071444) ZEPHYR Cardinal 1 958562 653487 6054184 636540 5 REGULAR TR Health BAND (624817) Signature Audit [place] Stage Time Signature Unsigned Intra-Procedure 03/08/2020 Mindy 1:46:17 PM Nannemann RT(R) (CV) Intra-Procedure 03/08/2020 Madelyn Soriano 1:46:45 PM RN Intra-Procedure 03/08/2020 Terrence De La Fuente MD 1:47:19 PM [facility] [address] [place] [address]
[2020-03-07] MEDS ORDERED: ASPIRIN81 MG PO (10:40)
[2020-03-07] MEDS ORDERED: ZANAFLEX4 MG PO (10:41)
[2020-03-07] MEDS ORDERED: ISOSORBIDE MONO60 M1 PO (10:42)
[2020-03-07 11:01] LABS: CALC OSMOLALITY 279 mosm/kg (275-300); CALCIUM 8.7 mg/dL (8.5-10.1); CARBON DIOXIDE 27.4 mmol/L (21.0-32.0); CHLORIDE - SERUM 105 mmol/L (98-107); CREATININE - SERUM 1.3 mg/dL (0.6-1.3); GLUCOSE 106 mg/dL (74-106); HEMOGLOBIN 11.4 g/dL (12-16); LYMPHOCYTES 19.1 % (15-50); MCH 27.4 pg (26.0-34.0); MCHC 30.8 g/dL (31.0-37.0); MCV 88.9 fL (80.0-100.0); MEAN PLATELET VOLUME 10.6 fL (7.4-10.4); NEUTROPHILS 72.5 % (40-80); PLATELET COUNT 276 10x3/uL (130-400); POTASSIUM - SERUM 4.7 mmol/L (3.5-5.1); RBC 4.16 10x6/uL (4.00-5.40); RDW 13.4 % (11.5-14.5); SODIUM 140 mmol/L (136-145); UREA NITROGEN 15 mg/dL (7-18); eGFR NON AFRICAN AMERICAN 42 mL/min (90-120)
[2020-03-07 11:06] LABS: INR 0.98 (0.85-1.17)
[2020-03-07 11:18] LABS: ALBUMIN 3.1 g/dL (3.4-5.0); ALKALINE PHOSPHATASE 116 U/L (30-120); ALT (SGPT) 19 U/L (10-68); BILIRUBIN - TOTAL 0.29 mg/dL (0.2-1.3); CKMB 1.6 U/L (0.0-3.6); CREATINE KINASE 110 UL (21-215); MAGNESIUM - SERUM 2.2 mg/dL (1.8-2.4); PROTEIN - SERUM 6.5 g/dL (6.4-8.2); TROPONIN-I 0.024 ng/mL (0.000-0.060)
--- NOTE | 2020-03-07 11:30 | NUR ---
PT REPORTS PAIN FREE AT THIS TIME.
--- NOTE | 2020-03-07 17:35 | NUR ---
RECEIVED PT TO ROOM 2122 VIA WHEELCHAIR, PT WAS ABLE TO TRANSFER SELF FROM WHEELCHAIR TO BED WITH STEADY GATE. ORIENTED PT TO ROOM AND CALL LIGHT, WILL ASSESS PT AND START PLAN OF CARE.
--- NOTE | 2020-03-07 20:01 | NUR ---
HS MEDS GIVEN WITH FRESH ICE WATER. NORCO 1 TAB GIVEN FOR C/ PAIN TO LEFT FLANK, RATES PAIN AT A 7 ON PAIN SCALE. DENIES OTHER NEEDS. BED LOW, CL IN REACH.
[2020-03-08] VITALS: BP 138/56
--- NOTE | 2020-03-08 03:04 | NUR ---
I have reviewed this patient and I concur with the Shift Assessment completed by the Licensed Practical Nurse today this shift.
[2020-03-08 04:00] VITALS: BP 139/71
--- NOTE | 2020-03-08 07:20 | NUR ---
RECIEVE REPORT. ALERT AND ORIENTED X4. SITTING UP IN BED. CONSENTS FOR TRUCK OPERATOR SIGNED ON CHART. PREMEDICATIONS ORDERED FOR IODINE ALLERGY. SINUS RYTHM ON TELEMETRY. CONTINUE PLAN OF CARE AND SAFETY PRECAUTIONS.
[2020-03-08 07:39] LABS: BASOPHILS 0.2 % (0-2); EOSINOPHILS 3.1 % (0-7); HEMATOCRIT 37.4 % (36.0-48.0); HEMOGLOBIN 11.2 g/dL (12-16); IMMATURE GRANULOCYTES 0.2 % (0-5); LYMPHOCYTES 20.5 % (15-50); MCH 27.4 pg (26.0-34.0); MCHC 29.9 g/dL (31.0-37.0); MEAN PLATELET VOLUME 10.7 fL (7.4-10.4); MONOCYTES 8.4 % (2-11); NEUTROPHILS 67.6 % (40-80); PLATELET COUNT 244 10x3/uL (130-400); RBC 4.09 10x6/uL (4.00-5.40)
[2020-03-08 07:40] LABS: MCV 91.4 fL (80.0-100.0); WBC 4.9 10x3/uL (4.8-10.8)
[2020-03-08 08:09] LABS: ALKALINE PHOSPHATASE 221 U/L (30-120); BILIRUBIN - TOTAL 0.34 mg/dL (0.2-1.3); CALC OSMOLALITY 282 mosm/kg (275-300); CALCIUM 8.3 mg/dL (8.5-10.1); CARBON DIOXIDE 31.6 mmol/L (21.0-32.0); CHLORIDE - SERUM 107 mmol/L (98-107); CKMB 1.7 U/L (0.0-3.6); CREATINE KINASE 92 UL (21-215); CREATININE - SERUM 1.2 mg/dL (0.6-1.3); GLUCOSE 88 mg/dL (74-106); PROTEIN - SERUM 5.7 g/dL (6.4-8.2); SODIUM 142 mmol/L (136-145); TROPONIN-I 0.036 ng/mL (0.000-0.060); UREA NITROGEN 14 mg/dL (7-18); eGFR NON AFRICAN AMERICAN 46 mL/min (90-120)
[2020-03-08 08:11] LABS: ALT (SGPT) 127 U/L (10-68)
[2020-03-08 09:00] VITALS: BP 139/80
[2020-03-08 12:08] VITALS: BP 130/72; BP 155/61
[2020-03-08 12:49] VITALS: Ht 160 cm; Wt 104.3 kg
--- NOTE | 2020-03-08 14:02 | NUR ---
ARRIVE BACK TO ROOM VIA BED FROM CASINO GAMING WORKER. SEDATED. AROUSES TO STIMULI. FAMILY AT BEDSIDE. RT WRIST ZYTHROBAND ON. FREE FROM BLEEDING. FREE FROM HEMATOMA. BP-121/52, HR-59 SINUS JULIEN, O2-100% 2LNC. DENIES ANY NEEDS. ENCOURAGE TO REMAIN IN BED FOR NEXT 2 HOURS.
[2020-03-08 15:00] VITALS: BP 122/52
[2020-03-08 20:00] VITALS: BP 135/53
[2020-03-09] VITALS: BP 145/58
--- NOTE | 2020-03-09 01:09 | NUR ---
I have reviewed this patient and I concur with the Shift Assessment completed by the Licensed Practical Nurse today this shift.
--- NOTE | 2020-03-09 02:14 | NUR ---
RESTING WITH EYES CLOSED, RESPERATIONS EVEN, NO S/S DISTRESS NOTED.
[2020-03-09 04:00] VITALS: BP 129/49
--- NOTE | 2020-03-09 07:20 | NUR ---
RECIEVE REPORT. RESTING IN BED WITH EYES CLOSED. NO SIGNS OF DISTRESS. CONTINUE PLAN OF CARE AND SAFETY PRECAUTIONS.
--- NOTE | 2020-03-09 12:27 | MORECARE ---
CASE MANAGEMENT DISCHARGE SUMMARY PATIENT: BRYSON NOONAN UNIT: [id number] ADM DATE: 03/08/20 AGE: 75 : 45 SEX: F ROOM/BED: D.1213 AUTHOR: RONADOC PHYSICIAN: REFERRING PHYSICIAN: ROXANA LUTZ MD DATE OF SERVICE: 03/09/20 Discharge Plan Patient Name: BRYSON NOONAN Facility: [facility]:[place] : 1945 Planned Disposition: Home or Self Care Anticipated Discharge Date: Discharge Date: Expected LOS: Initial Reviewer: [email or web address] Initial Review Date: 03/07/2020 Generated: 03/09/20 1:26 pm Comments DCP- Discharge Planning Updated by [id number]: Lakeisha Pires on 03/09/20 11:[address] Patient Name: BRYSON NOONAN Admission Status: ER Accout number: [id number] Admission Date: 03-08-2020 : 1945 Admission Diagnosis: Attending: ROXANA LUTZ Current LOS: 1 Anticipated DC Date: Planned Disposition: Home or Self Care Primary Insurance: MEDICARE A & B Discharge Planning Comments: CM met with patient to complete initial dc planning assessment. CM educated patient on the CM role and verbal consent given by patient to complete assessment. CM verified patient's address, phone number, and emergency contact phone numbers. Patient lives at home with family. At discharge patient plans to return home and feels this is a safe discharge. CM discussed availability of home health, rehab services, and medical equipment. Patient denied known discharge needs at this time. A walk test was performed to assess the need for home and portable oxygen. The patient saturation was 95-97 % with exertion. Transportation provider at discharge will be her sister who is currently at bedside. CM will continue to follow and will assist as needed with dc plans/needs. [employer]: Lakeisha SAINI,RN,CM Coverage Notice Reviewer: [id number] - Lakeisha Pires Notice Issued Date-Time: 03/08/2020 10:30 Notice Type: Medicare Outpatient Observation Notice Notice Delivered To: Family Member Relationship to Patient: Sister Boom Boss Name: Carol Isbell Delivery Method: HAND - Hand Delivered Mary Jo Days: Prior Verbal Notification: Recipient Understood Notice: Yes Recipient Signature: Yes Med Rec Note Co-signed by Attending: Coverage Notice Comment: chao marilu Patient Name: BRYSON NOONAN Page [id number] at 1227 All edits/amendments must be made on the electronic document DICTATION DATE: 03/09/201225 HR ADMINISTRATIVE ASSISTANT: CASSIDY 03/09/20 1226 RPT#: [id number] DC DATE: STATUS: ADM IN [facility] [address] [place] [address] END OF REPORT
--- NOTE | 2020-03-09 13:42 | NUR ---
ALERT AND ORIENTED X4. AMBULATING IN ROOM. FAMILY AT BEDSIDE. DC RT HAND IV TIP INTACT. DISCHARGE INSTRUCTIONS GIVEN VERBALLY AND WRITTEN. DISCHARGE PAPERS SIGNED ON CHART. RT WRIST REMAINS FREE FROM HEMATOMA. FREE FROM BLEEDING. ESCORT TO RIDE VIA WHEELCHAIR. REMAINS FREE FORM INJURY.
== END 2020-03-09 13:51 | disposition home or self-care (01) | DRG 287 ==
LOC: D.ER 10:21 → D.M2 16:00 → OBSVTIME 16:00 → D.M2 03-08 17:04
PROVIDERS: Family Medicine; Internal Medicine Cardiovascular Disease; ADMIT Family Medicine; ATTEND Family Medicine
PROC: B2151ZZ Fluoroscopy of Left Heart using Low Osmolar Contrast (ICD-10-PCS; 2020-03-08)
PROC: 4A023N7 Measurement of Cardiac Sampling and Pressure, Left Heart, Percutaneous Approach (ICD-10-PCS; 2020-03-08)
PROC: B2111ZZ Fluoroscopy of Multiple Coronary Arteries using Low Osmolar Contrast (ICD-10-PCS; principal; 2020-03-08 12:50)
DX: I25.119 Atherosclerotic heart disease of native coronary artery with unspecified angina pectoris (principal); I24.9 Acute ischemic heart disease, unspecified; E11.9 Type 2 diabetes mellitus without complications; J44.9 Chronic obstructive pulmonary disease, unspecified